=== PATIENT | female | born 1980 | race American Indian/Alaskan Native ===

== ENCOUNTER 2017-09-20 20:55 | Emergency (ER) | payer OTHER ==
[2017-09-20] MEDS ORDERED: ASPIRIN PO ONE (21:35)
[2017-09-20 21:52] LABS: Basophils % (Auto) 0.5 % (0.0-1.8); Eosinophils # (Auto) 0.1 K/mm3 (0.0-0.4); Eosinophils % (Auto) 2.1 % (0.0-4.3); Hematocrit 27.8 % (30.3-42.9); Hemoglobin 8.9 gm/dl (10.1-14.3); Lymphocytes # (Auto) 1.6 K/mm3 (1.2-5.4); Lymphocytes % (Auto) 24.2 % (13.4-35.0); Mean Corpuscular HGB Conc 32 % (30-34); Monocytes # (Auto) 0.7 K/mm3 (0.0-0.8); Platelet Count 317 K/mm3 (140-440); Red Blood Count 4.21 M/mm3 (3.65-5.03); Red Cell Distribution Width 18.7 % (13.2-15.2)
[2017-09-20 21:57] LABS: Mean Corpuscular Hemoglobin 21 pg (28-32); Mean Corpuscular Volume 66 fl (79-97)
[2017-09-20 22:03] LABS: INR 0.95 (0.87-1.13); Partial Thromboplastin Time 28.2 Sec. (24.2-36.6)
[2017-09-20 22:12] LABS: BUN/Creatinine Ratio 9; Blood Urea Nitrogen 8 mg/dL (7-17); Calcium 8.5 mg/dL (8.4-10.2); Hemolysis Index 3
--- NOTE | 2017-09-20 23:02 | XRay Report ---
FINAL REPORT PROCEDURE: XR CHEST ROUTINE 2V TECHNIQUE: PA and lateral chest radiographs were obtained. CPT 49211 HISTORY: Shortness of breath w/Chest pain COMPARISON: No prior studies are available for comparison. FINDINGS: Heart: Upper normal size. Mediastinum/Vessels: Normal. Lungs/Pleural space: Normal. Bony thorax: No acute osseous abnormality. Other: IMPRESSION: Heart size upper normal. No other abnormality is seen..
[2017-09-20 23:27] LABS: Bilirubin,Urine NEG (Negative); Blood,Urine NEG (Negative); Color,Urine Straw (Yellow); Urobilinogen,Urine < 2.0 mg/dL (<2.0); WBC,Urine < 1.0 /HPF (0.0-6.0)
--- NOTE | 2017-09-21 01:49 | Emergency Department Report ---
ED Chest Pain HPI - General Chief Complaint: Chest Pain Stated Complaint: CHEST PAIN Time Seen by Provider: 09/21/17 01:16 Source: patient Mode of arrival: Ambulatory Limitations: No Limitations - History of Present Illness Initial Comments: Patient states just moved here from [place] a year ago she's been lost to follow-up since then. She apparently does smoke has only a questionable history of coronary artery disease. She's been out of all of her medicines except her Prilosec since she moved to [place] a year ago. Today she has some intermittent chest tightness she thought it was maybe like her previous chest pain last for several minutes and goes away she's not sure if it's exertional. She is a poor historian. She does continue to smoke. [facility] was given medicine for her "chronic bronchitis. " She is here for evaluation of intermittent chest pain all day. Positive tobacco with possible greenish cough with chronic bronchitis. She denied any numbness or weakness denied any radiation denied any nausea vomiting or diaphoresis, no tearing pain , no calf pain, had cardiac bypass but gained all the wt back per pt Pain Location: substernal, left chest Severity scale (0 -10): 6 Quality: tightness Consistency: now resolved Improves With: nothing Worsens With: nothing re: denies: nausea, vomting, diaphoresis, dyspnea, sense of impending doom Other Symptoms: denies: fever, syncope, rash, acid taste in mouth, leg swelling , palpitations - Related Data Previous Rx's Medication Instructions Recorded Last Taken Type ALBUTEROL NEB's [Proventil 0.083% 2.5 mg IH TID PRN #1 neb 09/21/17 Unknown Rx NEBS] Doxycycline [Vibramycin CAP] 100 mg PO Q12HR #14 capsule 09/21/17 Unknown Rx Allergies Allergy/AdvReac Type Severity Reaction Status Date / Time No Known Allergies Allergy Unverified 09/20/17 21:23 Heart Score - HEART Score History: Slightly suspicious EKG: Non-specific Age: < 45 Risk factors: 1-2 risk factors Troponin: < normal limit HEART Score: 2 ED Review of Systems ROS: Stated complaint: CHEST PAIN Other details as noted in HPI Comment: All other systems reviewed and negative Constitutional: denies: diaphoresis, fever, malaise ENT: denies: dental pain, hearing loss Respiratory: denies: SOB with exertion, SOB at rest, stridor Cardiovascular: chest pain. denies: palpitations, dyspnea on exertion, orthopnea, edema, syncope, paroxysmal nocturnal dyspnea Endocrine: denies: excessive sweating, flushing Gastrointestinal: denies: abdominal pain, nausea, vomiting, diarrhea, constipation, hematemesis Musculoskeletal: denies: back pain, joint swelling, arthralgia Neurological: denies: headache, weakness, numbness, paresthesias, confusion, abnormal gait, vertigo ED Past Medical Hx - Past Medical History Previous Medical History?: Yes Hx Hypertension: Yes Hx Heart Attack/AMI: Yes Hx Diabetes: Yes Additional medical history: Lymphedema, Chronic Bronchitis uses a nebulizer machine - Surgical History Past Surgical History?: Yes Additional Surgical History: , Gastric Bypass - Social History Smoking Status: Current Every Day Smoker - Medications Home Medications: Home Medications Medication Instructions Recorded Confirmed Last Taken Type ALBUTEROL NEB's [Proventil 0.083% 2.5 mg IH TID PRN #1 neb 09/21/17 Unknown Rx NEBS] Doxycycline [Vibramycin CAP] 100 mg PO Q12HR #14 capsule 09/21/17 Unknown Rx ED Physical Exam - General Limitations: No Limitations General appearance: alert, in no apparent distress, anxious, obese - Head Head exam: Present: atraumatic, normocephalic - Eye Eye exam: Present: PERRL, EOMI - ENT ENT exam: Present: normal exam, normal orophraynx - Neck Neck exam: Present: normal inspection. Absent: tenderness, meningismus - Respiratory Respiratory exam: Present: normal lung sounds bilaterally. Absent: respiratory distress, wheezes, rales, rhonchi, stridor - Cardiovascular Cardiovascular Exam: Present: regular rate, normal rhythm. Absent: bradycardia , tachycardia, irregular rhythm - GI/Abdominal GI/Abdominal exam: Present: soft. Absent: distended, tenderness, guarding, rebound, rigid, mass, bruit, pulsatile mass - Extremities Exam Extremities exam: Present: normal inspection, other (no Homans sign). Absent: normal capillary refill, pedal edema, joint swelling, calf tenderness - Back Exam Back exam: Present: normal inspection, CVA tenderness (L). Absent: muscle spasm , paraspinal tenderness, vertebral tenderness - Neurological Exam Neurological exam: Present: alert, oriented X3, CN II-XII intact. Absent: motor sensory deficit ED Course Vital Signs 09/20/17 09/21/17 09/21/17 21:29 01:00 01:10 Temperature 99.6 F Pulse Rate 111 H 91 H Respiratory 20 19 20 Rate Blood Pressure 147/72 O2 Sat by Pulse 99 100 100 Oximetry 09/21/17 09/21/17 09/21/17 01:15 01:30 01:45 Temperature Pulse Rate 106 H 85 85 Respiratory 16 14 14 Rate Blood Pressure 155/87 162/97 162/97 O2 Sat by Pulse 100 98 Oximetry ED Medical Decision Making - Lab Data Result diagrams: 09/20/17 21:39 09/20/17 21:39 - EKG Data EKG shows normal: sinus rhythm - EKG Data Interpretation: no acute changes, other (QS V1 and V2 no acute ischemic change no old EKG) - Radiology Data Radiology results: report reviewed - Medical Decision Making Patient does continue to smoke. She has been lost to follow-up. Symptoms are atypical. Rest and with exertion she doesn't know if it's like her heart pain. She's not sure she's having increasing bouts of it. She just knows that over the past 24 hours she has had intermittent chest discomfort with rest and with exertion. She is a poor historian. She's not sure if his bronchitis or something else. EKG was nondiagnostic qS V1 and V2, troponin is negative timesx2 History is unremarkable. She is perc nega. Chest x-ray is negative pulses = bilaterally. There is no evidence of dissection or PE DVT at this time no evidence of pneumonia. She does seem to multifactorial symptomatology including related to her chronic underlying lung disease with chronic bronchitis with chest pain. 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 ED Disposition Clinical Impression: Chest pain, Chronic bronchitis Disposition: DC-01 TO HOME OR SELFCARE Is pt being admited?: No Condition: Stable Instructions: Chest Pain (ED), Chronic Bronchitis (ED) Additional Instructions: See the doctor listed , return Immediately If New Alarming Symptoms or Call 911 Prescriptions: ALBUTEROL NEB's [Proventil 0.083% NEBS] 2.5 mg IH TID PRN #1 neb PRN Reason: Wheezing Doxycycline [Vibramycin CAP] 100 mg PO Q12HR #14 capsule Referrals: MARIANA PARKER MD [Primary Care Provider] - 3-5 Days Forms: Work/School Release Form(ED) Time of Disposition: 03:38
[2017-09-21 03:37] VITALS: BP 179/102
== END 2017-09-21 03:48 | disposition home or self-care (01) ==
LOC: ED 20:55
DX: J42 Unspecified chronic bronchitis (principal); R07.89 Other chest pain; I11.0 Hypertensive heart disease with heart failure; E11.9 Type 2 diabetes mellitus without complications; F17.200 Nicotine dependence, unspecified, uncomplicated; Z98.84 Bariatric surgery status
CPT/HCPCS: 36415; 71046; 80048; 81001; 84484; 84703; 85025; 85610; 85730; 93005; 93010; 99284

== ENCOUNTER 2018-02-18 13:13 | Outpatient (CLI) | payer OTHER ==
[2018-02-18] MEDS ORDERED: XYLOCAINE TOPICAL 4% TP ONE ×2 (13:17→13:18)
== END 2018-02-18 13:14 | disposition home or self-care (01) ==
LOC: WOUND 13:13
PROVIDERS: ATTEND Surgery
DX: E11.622 Type 2 diabetes mellitus with other skin ulcer (principal); L97.811 Non-pressure chronic ulcer of other part of right lower leg limited to breakdown of skin; I89.0 Lymphedema, not elsewhere classified; I10 Essential (primary) hypertension; F17.200 Nicotine dependence, unspecified, uncomplicated
CPT/HCPCS: 99205; G0463

== ENCOUNTER 2018-02-25 13:03 | Outpatient (CLI) | payer OTHER ==
[2018-02-25] MEDS ORDERED: XYLOCAINE TOPICAL 4% TP ONE ×2 (13:37→13:38)
== END 2018-02-25 13:04 | disposition home or self-care (01) ==
LOC: WOUND 13:03
PROVIDERS: ATTEND Surgery
DX: E11.622 Type 2 diabetes mellitus with other skin ulcer (principal); L97.812 Non-pressure chronic ulcer of other part of right lower leg with fat layer exposed; I89.0 Lymphedema, not elsewhere classified; I10 Essential (primary) hypertension; F17.200 Nicotine dependence, unspecified, uncomplicated
CPT/HCPCS: 29581

== ENCOUNTER 2018-03-01 12:47 | Outpatient (CLI) | payer OTHER | END 2018-03-01 12:48 | disposition home or self-care (01) | LOC: WOUND 12:47 | PROVIDERS: ATTEND Surgery | DX: E11.622 Type 2 diabetes mellitus with other skin ulcer (principal); L97.812 Non-pressure chronic ulcer of other part of right lower leg with fat layer exposed; I89.0 Lymphedema, not elsewhere classified; I10 Essential (primary) hypertension; F17.200 Nicotine dependence, unspecified, uncomplicated | CPT/HCPCS: 99213; G0463 ==

== ENCOUNTER 2018-07-25 12:37 | Emergency (ER) | payer OTHER ==
[2018-07-25] MEDS ORDERED: BABY ASPIRIN PO ONE (12:59)
--- NOTE | 2018-07-25 12:59 | Emergency Department Report ---
Blank Doc - Documentation Documentation: This is a 38-year-old female that presents with mid chest pain with SOB. Desc ribes pain as pressure. Denies any radiation. PMH of SC, DM, HTN. This initial assessment diagnostic orders/clinical plan/treatment(s) is/are subject to change based on patient's health status, clinical progression and re- assessment by fellow clinical providers in the ED. Further treatment and workup at subsequent clinical providers discretion. Patient/guardians urged not to elope from ED s their condition may be serious if not clinically assessed and managed. Initial orders include: 1-Patient sent to MAIN ED for further evaluation and treatment 2- EKG 3- Labs 4- CXR
[2018-07-25] MEDS ORDERED: ASPIRIN ONE (13:03)
[2018-07-25 13:25] LABS: Basophils # (Auto) 0.1 K/mm3 (0.0-0.1); Basophils % (Auto) 1.1 % (0.0-1.8); Eosinophils # (Auto) 0.2 K/mm3 (0.0-0.4); Eosinophils % (Auto) 2.1 % (0.0-4.3); Hematocrit 39.6 % (30.3-42.9); Hemoglobin 13.6 gm/dl (10.1-14.3); Lymphocytes # (Auto) 1.7 K/mm3 (1.2-5.4); Lymphocytes % (Auto) 21.4 % (13.4-35.0); Mean Corpuscular HGB Conc 34 % (30-34); Mean Corpuscular Volume 83 fl (79-97); Monocytes # (Auto) 0.7 K/mm3 (0.0-0.8); Monocytes % (Auto) 8.9 % (0.0-7.3); Platelet Count 293 K/mm3 (140-440); Red Blood Count 4.79 M/mm3 (3.65-5.03); Red Cell Distribution Width 14.9 % (13.2-15.2)
[2018-07-25 13:35] LABS: INR 0.93 (0.87-1.13)
[2018-07-25] MEDS ORDERED: NITRO-BID 2% TP ONE (13:36)
--- NOTE | 2018-07-25 13:44 | Emergency Department Report ---
HPI - HPI HPI: Room 4 The patient is a 38-year-old female presenting with a chief complaint of chest pain. The patient states approximately 30 minutes prior to arrival she was at rest when she developed intermittent substernal chest pressure associated with shortness of breath. Patient denies nausea/vomiting or diaphoresis. Patient states her last stress test occurred approximately 2-3 years ago but she has never had a cardiac catheterization Location: Chest Duration: [See above] Quality: Pressure Severity: Moderate Modifying factors: [see above] Context: [see above] Mode of transportation: [not driving] <SHAKIRA LOCKWOOD - Last Filed: 07/25/18 15:06> <GIOVANNY GAMBLE - Last Filed: 07/25/18 16:56> - General Chief Complaint: Chest Pain Time Seen by Provider: 07/25/18 12:56 ED Past Medical Hx - Past Medical History Hx Hypertension: Yes Hx Heart Attack/AMI: Yes Hx Diabetes: Yes Additional medical history: Lymphedema, Chronic Bronchitis uses a nebulizer machine,PUD - Surgical History Additional Surgical History: , Gastric Bypass - Family History Family history: no significant - Social History Smoking Status: Current Every Day Smoker (1/2 pack per day) Substance Use Type: Alcohol (moderate), Marijuana <SHAKIRA LOCKWOOD - Last Filed: 07/25/18 15:06> <GIOVANNY GAMBLE - Last Filed: 07/25/18 16:56> - Medications Home Medications: Home Medications Medication Instructions Recorded Confirmed Last Taken Type Ergocalciferol [Vitamin D2] 1 cap PO QWEEK 07/25/18 07/25/18 Unknown History Ferrous Sulfate [Iron] 325 mg PO DAILY 07/25/18 07/25/18 Unknown History Loratadine 10 mg PO DAILY 07/25/18 07/25/18 Unknown History Omeprazole 40 mg PO DAILY 07/25/18 07/25/18 Unknown History amLODIPine [Norvasc] 10 mg PO DAILY 07/25/18 07/25/18 Unknown History ED Review of Systems ROS: Stated complaint: CHEST PAIN Other details as noted in HPI Constitutional: denies: diaphoresis Eyes: denies: eye pain ENT: denies: throat pain Respiratory: shortness of breath Cardiovascular: chest pain Endocrine: no symptoms reported Gastrointestinal: denies: nausea, vomiting Genitourinary: denies: dysuria Musculoskeletal: denies: back pain Neurological: denies: headache <SHAKIRA LOCKWOOD - Last Filed: 07/25/18 15:06> ROS: Stated complaint: CHEST PAIN Other details as noted in HPI <GIOVANNY GAMBLE - Last Filed: 07/25/18 16:56> Physical Exam - Physical Exam Vital Signs: Vital Signs 07/25/18 12:57 Temperature 97.8 F Pulse Rate 91 H Respiratory 22 Rate Blood Pressure 132/72 O2 Sat by Pulse 97 Oximetry Physical Exam: GENERAL: The patient is well-developed well-nourished female lying on stretcher not appearing to be in acute distress. [] HEENT: Normocephalic. Atraumatic. Extraocular motions are intact. Patient has moist mucous membranes. NECK: Supple. Trachea midline CHEST/LUNGS: Clear to auscultation. There is no respiratory distress noted. HEART/CARDIOVASCULAR: Regular. There is no tachycardia. There is no gallop rub or murmur. ABDOMEN: Abdomen is soft, nontender. Patient has normal bowel sounds. There is no abdominal distention. SKIN: There is no rash. There is no edema. There is no diaphoresis. NEURO: The patient is awake, alert, and oriented. The patient is cooperative. The patient has normal speech MUSCULOSKELETAL: There is no evidence of acute injury. <SHAKIRA LOCKWOOD K - Last Filed: 07/25/18 15:06> - Physical Exam Vital Signs: Vital Signs 07/25/18 07/25/18 07/25/18 12:57 14:31 14:45 Temperature 97.8 F Pulse Rate 91 H 103 H 104 H Respiratory 22 17 13 Rate Blood Pressure 132/72 144/72 O2 Sat by Pulse 97 99 97 Oximetry 07/25/18 07/25/18 15:01 15:15 Temperature Pulse Rate 110 H 98 H Respiratory 20 18 Rate Blood Pressure 183/96 144/72 O2 Sat by Pulse 91 98 Oximetry <GIOVANNY GAMBLE - Last Filed: 07/25/18 16:56> ED Course Vital Signs 07/25/18 12:57 Temperature 97.8 F Pulse Rate 91 H Respiratory 22 Rate Blood Pressure 132/72 O2 Sat by Pulse 97 Oximetry <SHAKIRA LOCKWOOD - Last Filed: 07/25/18 15:06> Vital Signs 07/25/18 07/25/18 07/25/18 12:57 14:31 14:45 Temperature 97.8 F Pulse Rate 91 H 103 H 104 H Respiratory 22 17 13 Rate Blood Pressure 132/72 144/72 O2 Sat by Pulse 97 99 97 Oximetry 07/25/18 07/25/18 15:01 15:15 Temperature Pulse Rate 110 H 98 H Respiratory 20 18 Rate Blood Pressure 183/96 144/72 O2 Sat by Pulse 91 98 Oximetry <GAMBLEGIOVANNY - Last Filed: 07/25/18 16:56> ED Medical Decision Making - Lab Data Result diagrams: 07/25/18 13:15 07/25/18 13:15 - EKG Data -: EKG Interpreted by Me EKG shows normal: sinus rhythm Rate: normal - EKG Data When compared to previous EKG there are: previous EKG unavailable Interpretation: other (no ischemic changes seen) - Radiology Data Radiology results: report reviewed (chest x-ray), image reviewed (chest x-ray) interpreted by me: Chest x-ray-no focal infiltrates, no pneumothorax [facility] [address] [place] [address] XRay Report Signed Patient: NEIDA CHENG MR#: [id number] : 1980 Acct:[id number] Age/Sex: 38 / F ADM Date: 07/25/18 Loc: ED Attending Dr: Ordering Physician: SHAKIRA LOCKWOOD MD Date of Service: 07/25/18 Procedure(s): XR chest 1V ap Accession Number(s): [id number] cc: SHAKIRA LOCKWOOD MD Fluoro Time In Minutes: AP CHEST: HISTORY: Chest pain AP view of the chest demonstrates a normal mediastinal and cardiac contour with clear lungs and normal bony and soft tissue structures. IMPRESSION: Unremarkable AP chest. Transcribed By: TTR Dictated By: MONALISA SANCHEZ JR, MD Electronically Authenticated By: MONALISA SANCHEZ JR, MD Signed Date/Time: 07/25/18 1354 DD/ 1353 TD/TT: 07/25/18 1354 - Differential Diagnosis ACS, pericarditis, GERD <SHAKIRA LOCKWOOD - Last Filed: 07/25/18 15:06> - Lab Data Result diagrams: 07/25/18 13:15 07/25/18 13:15 - Medical Decision Making Second troponin and negative. Patient of the sign out AGAINST MEDICAL ADVICE since Dr. Lockwood wanted to admit the patient to the hospital. <GIOVANNY GAMBLE - Last Filed: 07/25/18 16:56> Critical care attestation.: If time is entered above; I have spent that time in minutes in the direct care of this critically ill patient, excluding procedure time. <SHAKIRA LOCKWOOD - Last Filed: 07/25/18 15:06> Critical care attestation.: If time is entered above; I have spent that time in minutes in the direct care of this critically ill patient, excluding procedure time. <GIOVANNY GAMBLE - Last Filed: 07/25/18 16:56> ED Disposition <SHAKIRA LOCKWOOD - Last Filed: 07/25/18 15:06> Is pt being admited?: No Time of Disposition: 16:55 <GIOVANNY GAMBLE - Last Filed: 07/25/18 16:56> Clinical Impression: Chest pain Disposition: DC-07 LEFT AGAINST MED ADVICE Condition: Stable Instructions: Chest Pain (ED) Additional Instructions: Take the medication as prescribed. Follow up with your doctor or the clinic/doctor provided. Return if symptoms worsen as indicated by your discharge instructions. You are signing out AGAINST MEDICAL ADVICE today since admission was recommended. Referrals: [facility] MD JENNIFER [Primary Care Provider] - 3-5 Days MAIKOL MOULTON MD [Staff Physician] - 3-5 Days Forms: AMA Form
[2018-07-25 13:55] LABS: Alanine Aminotransferase 55 units/L (7-56); Albumin 3.8 g/dL (3.9-5); BUN/Creatinine Ratio 18; Blood Urea Nitrogen 14 mg/dL (7-17); Calcium 9.2 mg/dL (8.4-10.2); Hemolysis Index 13
--- NOTE | 2018-07-25 13:57 | XRay Report ---
AP CHEST: HISTORY: Chest pain AP view of the chest demonstrates a normal mediastinal and cardiac contour with clear lungs and normal bony and soft tissue structures. IMPRESSION: Unremarkable AP chest.
[2018-07-25] MEDS ORDERED: ASPIRIN PO ONE (14:00)
[2018-07-25 14:10] LABS: Creatine Kinase MB 2.7 ng/mL (0.0-4.0)
[2018-07-25 16:37] LABS: Bilirubin,Urine NEG (Negative); Blood,Urine LG (Negative); Color,Urine Yellow (Yellow); Mucus,Urine FEW /HPF; Urobilinogen,Urine < 2.0 mg/dL (<2.0); WBC,Urine < 1.0 /HPF (0.0-6.0)
[2018-07-25 16:57] VITALS: BP 151/93
== END 2018-07-25 17:18 | disposition left against medical advice (07) ==
LOC: ED 12:37
DX: R07.89 Other chest pain (principal); R06.02 Shortness of breath; I10 Essential (primary) hypertension; I25.2 Old myocardial infarction; E11.9 Type 2 diabetes mellitus without complications; F17.200 Nicotine dependence, unspecified, uncomplicated; F12.10 Cannabis abuse, uncomplicated
CPT/HCPCS: 36415; 71045; 80053; 81001; 82550; 82553; 84484; 84703; 85025; 85610; 85730; 93005; 93010

== ENCOUNTER 2018-09-06 08:45 | Observation (INO) | payer OTHER ==
[2018-09-06] MEDS ORDERED: ASPIRIN PO ONE (08:55)
[2018-09-06 09:37] LABS: Basophils % (Auto) 0.6 % (0.0-1.8); Eosinophils # (Auto) 0.2 K/mm3 (0.0-0.4); Eosinophils % (Auto) 2.3 % (0.0-4.3); Hematocrit 37.7 % (30.3-42.9); Lymphocytes # (Auto) 1.2 K/mm3 (1.2-5.4); Lymphocytes % (Auto) 17.9 % (13.4-35.0); Mean Corpuscular HGB Conc 34 % (30-34); Mean Corpuscular Volume 84 fl (79-97); Monocytes # (Auto) 0.6 K/mm3 (0.0-0.8); Monocytes % (Auto) 9.3 % (0.0-7.3); Platelet Count 273 K/mm3 (140-440); Red Blood Count 4.51 M/mm3 (3.65-5.03)
[2018-09-06] MEDS ORDERED: CATAPRES PO ONE (09:49)
[2018-09-06] MEDS ORDERED: NITROSTAT SL PRN (09:50)
[2018-09-06] MEDS ORDERED: CATAPRES ONE (09:54)
--- NOTE | 2018-09-06 09:54 | Emergency Department Report ---
ED Chest Pain HPI - General Chief Complaint: Chest Pain Stated Complaint: CHEST AND BACK PAIN Time Seen by Provider: 09/06/18 09:39 Source: patient Mode of arrival: Ambulatory Limitations: No Limitations - History of Present Illness Initial Comments: Patient is a 38-year-old female with past medical history of hypertension diabetes who states that she believes she had a MD in 2011 as presented with chest discomfort. Patient states in 2011 she was told that she had a mild heart attack at the [facility]. The patient states she never had a cardiac cath or stents placed. Patient states "I had a stress test as stated that my heart was functioning at 80%". Patient states that she oftentimes gets chest pain. Patient states last chest pain episodes were in July she was seen here in the emergency department and was to be admitted however she signed out AGAINST MEDICAL ADVICE. Patient states the chest pressure started last night and some mild shortness of breath and then resolved before she went to bed. 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 Patient states that the pain is 6 out of 10 currently. She hasn't got short of breath but no diaphoresis. Patient denies any nausea vomiting, cold or congestion. Severity scale (0 -10): 6 - Related Data Home Medications Medication Instructions Recorded Confirmed Last Taken Ergocalciferol [Vitamin D2] 1 cap PO QWEEK 07/25/18 09/06/18 Unknown Ferrous Sulfate [Iron] 325 mg PO DAILY 07/25/18 09/06/18 Unknown Loratadine 10 mg PO DAILY 07/25/18 09/06/18 Unknown Omeprazole 40 mg PO DAILY 07/25/18 09/06/18 Unknown amLODIPine [Norvasc] 10 mg PO DAILY 07/25/18 09/06/18 Unknown Allergies Allergy/AdvReac Type Severity Reaction Status Date / Time No Known Allergies Allergy Verified 09/06/18 08:51 Heart Score - HEART Score History: Moderately suspicious EKG: Non-specific Age: < 45 Risk factors: > 3 risk factors or hx of atherosclerotic disease Troponin: < normal limit HEART Score: 4 ED Review of Systems ROS: Stated complaint: CHEST AND BACK PAIN Other details as noted in HPI Comment: All other systems reviewed and negative ED Past Medical Hx - Past Medical History Hx Hypertension: Yes Hx Heart Attack/AMI: Yes Hx Diabetes: Yes Additional medical history: Lymphedema, Chronic Bronchitis uses a nebulizer machine,PUD - Surgical History Additional Surgical History: , Gastric Bypass - Social History Smoking Status: Never Smoker Substance Use Type: None - Medications Home Medications: Home Medications Medication Instructions Recorded Confirmed Last Taken Type Ergocalciferol [Vitamin D2] 1 cap PO QWEEK 07/25/18 09/06/18 Unknown History Ferrous Sulfate [Iron] 325 mg PO DAILY 07/25/18 09/06/18 Unknown History Loratadine 10 mg PO DAILY 07/25/18 09/06/18 Unknown History Omeprazole 40 mg PO DAILY 07/25/18 09/06/18 Unknown History amLODIPine [Norvasc] 10 mg PO DAILY 07/25/18 09/06/18 Unknown History ED Physical Exam - General Limitations: No Limitations General appearance: alert, in no apparent distress - Head Head exam: Present: atraumatic, normocephalic - Eye Eye exam: Present: normal appearance, PERRL, EOMI - ENT ENT exam: Present: mucous membranes moist - Neck Neck exam: Present: normal inspection - Respiratory Respiratory exam: Present: normal lung sounds bilaterally. Absent: respiratory distress, wheezes, rales, rhonchi, chest wall tenderness - Cardiovascular Cardiovascular Exam: Present: regular rate, normal rhythm, normal heart sounds. Absent: systolic murmur, diastolic murmur, rubs, gallop - GI/Abdominal GI/Abdominal exam: Present: soft, normal bowel sounds. Absent: distended, tenderness, guarding, rebound, rigid - Extremities Exam Extremities exam: Present: normal inspection - Back Exam Back exam: Present: normal inspection - Neurological Exam Neurological exam: Present: alert, oriented X3 - Psychiatric Psychiatric exam: Present: normal affect, normal mood - Skin Skin exam: Present: warm, dry, intact, normal color. Absent: rash ED Course Vital Signs 09/06/18 09/06/18 09/06/18 08:51 09:59 10:00 Temperature 98.2 F Pulse Rate 100 H 89 89 Respiratory 18 Rate Blood Pressure 180/98 130/90 130/90 O2 Sat by Pulse 99 Oximetry SAMANTA score - Samanta Score Age > 65: (0) No Aspirin use within the Past 7 Days: (0) No 3 or more CAD Risk Factors: (1) Yes 2 or more Angina events in past 24 hrs: (1) Yes Known CAD with more than 50% Stenosis: (0) No Elevated Cardiac Markers: (0) No ST Deviation Greater than 0.5mm: (0) No SAMANTA Score: 2 ED Medical Decision Making - Lab Data Result diagrams: 09/06/18 09:12 09/06/18 09:12 Lab Results 09/06/18 09/06/18 09/06/18 Range/Units 09:12 09:12 11:47 WBC 6.8 (4.5-11.0) K/mm3 RBC 4.51 (3.65-5.03) M/mm3 Hgb 13.0 (10.1-14.3) gm/dl Hct 37.7 (30.3-42.9) % MCV 84 (79-97) fl MCH 29 (28-32) pg MCHC 34 (30-34) % RDW 15.0 (13.2-15.2) % Plt Count 273 (140-440) K/mm3 Lymph % (Auto) 17.9 (13.4-35.0) % Addison % (Auto) 9.3 H (0.0-7.3) % Eos % (Auto) 2.3 (0.0-4.3) % Baso % (Auto) 0.6 (0.0-1.8) % Lymph # 1.2 (1.2-5.4) K/mm3 Addison # 0.6 (0.0-0.8) K/mm3 Eos # 0.2 (0.0-0.4) K/mm3 Baso # 0.0 (0.0-0.1) K/mm3 Seg Neutrophils % 69.9 (40.0-70.0) % Seg Neutrophils # 4.7 (1.8-7.7) K/mm3 D-Dimer (0-234) ng/mlDDU Sodium 136 L (137-145) mmol/L Potassium 3.9 (3.6-5.0) mmol/L Chloride 99.9 (98-107) mmol/L Carbon Dioxide 23 (22-30) mmol/L Anion Gap 17 mmol/L BUN 9 (7-17) mg/dL Creatinine 0.9 (0.7-1.2) mg/dL Estimated GFR > 60 ml/min BUN/Creatinine Ratio 10 % Glucose 168 H (65-100) mg/dL Calcium 8.9 (8.4-10.2) mg/dL Troponin T < 0.010 < 0.010 (0.00-0.029) ng/mL NT-Pro-B Natriuret Pep (0-450) pg/mL Triglycerides (2-149) mg/dL Cholesterol (50-199) mg/dL LDL Cholesterol Direct (50-130) mg/dL 09/06/18 09/06/18 Range/Units 11:47 13:10 WBC (4.5-11.0) K/mm3 RBC (3.65-5.03) M/mm3 Hgb (10.1-14.3) gm/dl Hct (30.3-42.9) % MCV (79-97) fl MCH (28-32) pg MCHC (30-34) % RDW (13.2-15.2) % Plt Count (140-440) K/mm3 Lymph % (Auto) (13.4-35.0) % Addison % (Auto) (0.0-7.3) % Eos % (Auto) (0.0-4.3) % Baso % (Auto) (0.0-1.8) % Lymph # (1.2-5.4) K/mm3 Addison # (0.0-0.8) K/mm3 Eos # (0.0-0.4) K/mm3 Baso # (0.0-0.1) K/mm3 Seg Neutrophils % (40.0-70.0) % Seg Neutrophils # (1.8-7.7) K/mm3 D-Dimer 462.84 H (0-234) ng/mlDDU Sodium (137-145) mmol/L Potassium (3.6-5.0) mmol/L Chloride (98-107) mmol/L Carbon Dioxide (22-30) mmol/L Anion Gap mmol/L BUN (7-17) mg/dL Creatinine (0.7-1.2) mg/dL Estimated GFR ml/min BUN/Creatinine Ratio % Glucose (65-100) mg/dL Calcium (8.4-10.2) mg/dL Troponin T (0.00-0.029) ng/mL NT-Pro-B Natriuret Pep 32.99 (0-450) pg/mL Triglycerides 148 (2-149) mg/dL Cholesterol 135 (50-199) mg/dL LDL Cholesterol Direct 75 (50-130) mg/dL - EKG Data -: EKG Interpreted by Me EKG shows normal: sinus rhythm, axis, intervals, QRS complexes Rate: tachycardia (101 rate) - EKG Data 09/06/18 09:55 Patient has Q waves in V1 and V2. These are unchanged since 07/25/2018. There is no evidence of an acute MD. - Radiology Data Radiology results: image reviewed (CXR WNL) - Medical Decision Making Patient has a history of hypertension diabetes and has allegedly had some cardiac issues in the past. Patient left AMA on her last visit and does have a cardiology appointment scheduled soon but this will not be for another week and a half. Patient still actively having some pain. Patient does have 2 negative troponins however until the patient has a stress test or cardiac catheter unable to determine whether the patient truly has unstable angina. Patient to be admitted to the hospitalist service with cardiology consult Critical Care Time: Yes (30) Critical care attestation.: If time is entered above; I have spent that time in minutes in the direct care of this critically ill patient, excluding procedure time. ED Disposition Clinical Impression: Chest pain Qualifiers: Chest pain type: unspecified Qualified Code(s): R07.9 - Chest pain, unspecified Disposition: -09 OP ADMIT IP TO THIS HOSP Is pt being admited?: Yes Does the pt Need Aspirin: No Condition: Stable Instructions: Chest Pain (ED) Time of Disposition: 13:49
--- NOTE | 2018-09-06 09:55 | XRay Report ---
ROUTINE CHEST, TWO VIEWS: HISTORY: chest pain. The trachea, heart, mediastinal contour, lung coffman and bony thorax are unremarkable. IMPRESSION: Unremarkable chest x-ray.
[2018-09-06 10:07] LABS: BUN/Creatinine Ratio 10; Blood Urea Nitrogen 9 mg/dL (7-17); Calcium 8.9 mg/dL (8.4-10.2); Hemolysis Index 6
[2018-09-06] MEDS ORDERED: PROVENTIL IH PRN (12:53)
[2018-09-06] MEDS ORDERED: BABY ASPIRIN PO STA (12:53)
[2018-09-06] MEDS ORDERED: SODIUM CHLORIDE FLUSH SYRINGE 10 ML IV PRN ×2 (12:53)
[2018-09-06] MEDS ORDERED: TYLENOL PO PRN (12:53)
[2018-09-06] MEDS ORDERED: ZOFRAN IV PRN (12:53)
--- NOTE | 2018-09-06 12:53 | History and Physical Report ---
History of Present Illness Chief complaint: My chest hurts, this feels like my last heart attack History of present illness: 38 YO Female with MO, Obesity, HTN, DM, IA, Lymphedema, Obesity Hypoventilation Syndrome presents to ED for evaluation. Pt states that she has experienced pain in her chest over the past 1 day with worsening symptoms over the past 8 hours. Pt states that pain is 6/10, substernal, radiates to back, worsened with exertion, relieved somewhat with rest, associated with shortness of breath. Pt acknowledges decreased exercise tolerance. Pt transported to [facility] via private vehicle. Pt seen and evaluated in ED and found to have Angina, and symptoms consistent with Diastolic CHF. Pt admitted to telemetry. Cardiology consulted in ED. Pt medication reconciled at time of admission. Past History Past Medical History: acute IA, diabetes, hypertension Past Surgical History: , Other (Gastric Bypass) Social history: single. denies: smoking, alcohol abuse, prescription drug abuse Family history: hypertension Medications and Allergies Allergies Allergy/AdvReac Type Severity Reaction Status Date / Time No Known Allergies Allergy Verified 09/06/18 08:51 Home Medications Medication Instructions Recorded Confirmed Last Taken Type Ergocalciferol [Vitamin D2] 1 cap PO QWEEK 07/25/18 09/06/18 Unknown History Ferrous Sulfate [Iron] 325 mg PO DAILY 07/25/18 09/06/18 Unknown History Loratadine 10 mg PO DAILY 07/25/18 09/06/18 Unknown History Omeprazole 40 mg PO DAILY 07/25/18 09/06/18 Unknown History amLODIPine [Norvasc] 10 mg PO DAILY 07/25/18 09/06/18 Unknown History Active Meds: Active Medications Nitroglycerin (Nitrostat) 0.4 mg SL .Q5MIN PRN PRN Reason: Chest Pain Last Admin: 09/06/18 10:00 Dose: 0.4 mg Documented by: Review of Systems Constitutional: no weight loss, no weight gain, no fever, no chills Ears, nose, mouth and throat: no ear pain, no ear discharge, no tinnitis, no decreased hearing, no nose pain, no nasal congestion Breasts: no change in shape, no swelling, no mass Cardiovascular: chest pain, shortness of breath, dyspnea on exertion, decreased exercise tolerance, no rapid/irregular heart beat, no syncope, no lightheadedness Respiratory: no cough, no cough with sputum, no excessive sputum, no hemoptysis Gastrointestinal: no nausea, no vomiting, no diarrhea, no constipation, no change in bowel habits Genitourinary Female: no pelvic pain, no flank pain, no menorrhagia, no dysuria, no urinary frequency Rectal: no pain, no incontinence, no bleeding Musculoskeletal: no neck stiffness, no neck pain, no shooting arm pain, no arm numbness/tingling, no low back pain Integumentary: no rash, no pruritis, no redness, no sores, no wounds Neurological: no transient paralysis, no paralysis, no weakness, no parathesias, no numbness, no tingling, no seizures Psychiatric: no anxiety, no memory loss, no change in sleep habits, no sleep disturbances, no hypersomnia, no change in appetite, no change in libido, no suicidal ideation, no disorientation Endocrine: no cold intolerance, no heat intolerance, no polyphagia, no excessive thirst, no polydipsia, no polyuria, no nocturia Hematologic/Lymphatic: no easy bruising, no easy bleeding Allergic/Immunologic: no urticaria, no allergic rhinitis, no wheezing Exam - Constitutional Vitals: Temp Pulse Resp BP Pulse Ox 98.2 F 89 18 130/90 99 09/06/18 08:51 09/06/18 10:00 09/06/18 08:51 09/06/18 10:00 09/06/18 08:51 General appearance: Present: mild distress, cachectic - EENT Eyes: Present: PERRL ENT: hearing intact, clear oral mucosa - Neck Neck: Present: supple, normal ROM - Respiratory Respiratory effort: normal Respiratory: bilateral: CTA - Cardiovascular Heart Sounds: Present: S1 & S2. Absent: rub, click - Extremities Extremities: pulses symmetrical, No edema Peripheral Pulses: within normal limits - Abdominal General gastrointestinal: Present: soft, non-tender, non-distended, normal bowel sounds Female genitourinary: Present: normal - Integumentary Integumentary: Present: clear, warm, dry - Musculoskeletal Musculoskeletal: gait normal, strength equal bilaterally - Psychiatric Psychiatric: appropriate mood/affect, intact judgment & insight - Neurologic Neurologic: CNII-XII intact, moves all extremities Results - Labs CBC & Chem 7: 09/06/18 09:12 09/06/18 09:12 Labs: Abnormal lab results 09/06/18 09/06/18 Range/Units 09:12 09:12 [place] % (Auto) 9.3 H (0.0-7.3) % Sodium 136 L (137-145) mmol/L Glucose 168 H (65-100) mg/dL Assessment and Plan - Patient Problems (1) Angina at rest Current Visit: Yes Status: Acute Plan to address problem: Admit to telemetry, serial cardiac enzymes, ekg, telemetry, stress test, cardiology consulted in ED, BNP, D dimer, Cardiology consulted in ED, morphine, supplemental oxygen, nitro, aspirin. (2) Diastolic CHF Current Visit: Yes Status: Acute Qualifiers: Heart failure chronicity: acute Qualified Code(s): I50.31 - Acute diastolic (congestive) heart failure Plan to address problem: Echo, BNP, D dimer, cardiology consulted in ED, strict I/O, daily weight, afterload reduction, chest x ray. (3) HTN (hypertension) Current Visit: Yes Status: Acute Qualifiers: Hypertension type: essential hypertension Qualified Code(s): I10 - Essential (primary) hypertension Plan to address problem: Monitor bp q shift. (4) Diabetes Current Visit: Yes Status: Acute Plan to address problem: ADA diet, insulin, accu check, (5) Obesity hypoventilation syndrome Current Visit: Yes Status: Acute Plan to address problem: Supplemental oxygen, nebulizer therapy, pulse oximetry, chest x ray, NIPPV as clinically indicated. (6) DVT prophylaxis Current Visit: Yes Status: Acute Plan to address problem: SCD to BLE while in bed, prophylactic lovenox
[2018-09-06] MEDS ORDERED: PROTONIX IV ONE (14:10)
[2018-09-06] MEDS ORDERED: PROTONIX PO ONE (14:10)
[2018-09-06 14:18] LABS: Chol/HDL Ratio 2.7 %
[2018-09-06] MEDS ORDERED: VITAMIN D2 PO SCH (15:00)
[2018-09-06] MEDS: PROTONIX PO SCH (16:09)
--- NOTE | 2018-09-06 16:54 | Cat Scan Report ---
PROCEDURE: CT angiogram chest with contrast. TECHNIQUE: Computerized tomographic angiography of the chest was performed after the IV injection of iodinated nonionic contrast including image processing. The image data was postprocessed using 2-di mensional multiplanar reformatted (MPR) and 3-dimensional (MIP and/or volume rendered) techniques. Au tomated exposure control, adjustment of mA and/or kV according to patient size, or iterative reconstr uction dose optimization techniques were utilized. CT DOSE LENGTH PRODUCT: 999.46 mGycm HISTORY: Chest pain. COMPARISONS: None. FINDINGS: Image quality is limited by the patient's obesity. The trachea and central bronchi appear normal. The lungs are clear and well expanded. There are no pleural effusions. The thoracic aorta has a normal c aliber. There is no evidence of aortic dissection. The pulmonary arteries enhance normally. There is no evidence of pulmonary embolism. There is no mediastinal adenopathy. The heart size is normal. The thoracic skeleton appears intact. IMPRESSION: No significant abnormality. This document is electronically signed by Tom Chang MD., September 06 2018 04:52:42 PM ET
[2018-09-06] MEDS ORDERED: PERCOCET 5/325 ONE (19:46)
[2018-09-06] MEDS ORDERED: PERCOCET 5/325 PO ONE (19:49)
[2018-09-06] MEDS ORDERED: LOVENOX SUB-Q SCH (22:00)
[2018-09-06] MEDS ORDERED: PEPCID PO SCH (22:00)
[2018-09-06] MEDS: SODIUM CHLORIDE FLUSH SYRINGE 10 ML IV SCH (22:57)
[2018-09-06] MEDS ORDERED: BENADRYL PO PRN (23:07)
[2018-09-07 06:47] LABS: BUN/Creatinine Ratio 13; Blood Urea Nitrogen 12 mg/dL (7-17); Calcium 8.4 mg/dL (8.4-10.2); Hemolysis Index 3
[2018-09-07] MEDS ORDERED: NORVASC PO SCH (10:00)
[2018-09-07] MEDS ORDERED: FEOSOL PO SCH (10:00)
[2018-09-07] MEDS ORDERED: LEXISCAN IV ONE ×2 (10:00→10:10)
[2018-09-07] MEDS ORDERED: CLARITIN PO SCH (10:00)
[2018-09-07] MEDS ORDERED: NON-FORMULARY (Omeprazole [Omeprazole] 40 MG) PO SCH (10:00)
--- NOTE | 2018-09-07 11:27 | Progress Note ---
Assessment and Plan Assessment and plan: 38 YO Female with MO, Obesity, HTN, DM, HI, Lymphedema, Obesity Hypoventilation Syndrome presents to ED for evaluation. Pt states that she has experienced pain in her chest over the past 1 day with worsening symptoms over the past 8 hours. Pt states that pain is 6/10, substernal, radiates to back, worsened with exertion, relieved somewhat with rest, associated with shortness of breath. Pt acknowledges decreased exercise tolerance. Pt transported to [facility] via private vehicle. Pt seen and evaluated in ED and found to have Angina, and symptoms consistent with Diastolic CHF. Pt admitted to telemetry. Cardiology consulted in ED. Pt medication reconciled at time of admission. (1) Angina at rest Current Visit: Yes Status: Acute Plan to address problem: Admit to telemetry, serial cardiac enzymes, ekg, telemetry, stress test, cardiology consulted in ED, BNP, D dimer, Cardiology consulted in ED, morphine, supplemental oxygen, nitro, aspirin. (2) Diastolic CHF Current Visit: Yes Status: Acute Qualifiers: Heart failure chronicity: acute Qualified Code(s): I50.31 - Acute diastolic (congestive) heart failure Plan to address problem: Echo, BNP, D dimer, cardiology consulted in ED, strict I/O, daily weight, afterload reduction, chest x ray. (3) HTN (hypertension) Current Visit: Yes Status: Acute Qualifiers: Hypertension type: essential hypertension Qualified Code(s): I10 - Essential (primary) hypertension Plan to address problem: Monitor bp q shift. (4) Diabetes Current Visit: Yes Status: Acute Plan to address problem: ADA diet, insulin, accu check, (5) Obesity hypoventilation syndrome Current Visit: Yes Status: Acute Plan to address problem: Supplemental oxygen, nebulizer therapy, pulse oximetry, chest x ray, NIPPV as clinically indicated. (6) DVT prophylaxis Current Visit: Yes Status: Acute Plan to address problem: SCD to BLE while in bed, prophylactic lovenox Hospitalist Physical - Constitutional Vitals: Temp Pulse Resp BP Pulse Ox 98.2 F 75 18 129/84 97 09/07/18 07:40 09/07/18 07:40 09/07/18 07:40 09/07/18 07:40 09/07/18 09:01 General appearance: Present: mild distress, cachectic Results - Labs CBC & Chem 7: 09/06/18 09:12 09/07/18 05:45 Labs: Laboratory Last Values WBC 6.8 K/mm3 (4.5-11.0) 09/06/18 09:12 RBC 4.51 M/mm3 (3.65-5.03) 09/06/18 09:12 Hgb 13.0 gm/dl (10.1-14.3) 09/06/18 09:12 Hct 37.7 % (30.3-42.9) 09/06/18 09:12 MCV 84 fl (79-97) 09/06/18 09:12 MCH 29 pg (28-32) 09/06/18 09:12 MCHC 34 % (30-34) 09/06/18 09:12 RDW 15.0 % (13.2-15.2) 09/06/18 09:12 Plt Count 273 K/mm3 (140-440) 09/06/18 09:12 Lymph % (Auto) 17.9 % (13.4-35.0) 09/06/18 09:12 [place] % (Auto) 9.3 % (0.0-7.3) H 09/06/18 09:12 Eos % (Auto) 2.3 % (0.0-4.3) 09/06/18 09:12 Baso % (Auto) 0.6 % (0.0-1.8) 09/06/18 09:12 Lymph # 1.2 K/mm3 (1.2-5.4) 09/06/18 09:12 [place] # 0.6 K/mm3 (0.0-0.8) 09/06/18 09:12 Eos # 0.2 K/mm3 (0.0-0.4) 09/06/18 09:12 Baso # 0.0 K/mm3 (0.0-0.1) 09/06/18 09:12 Seg Neutrophils % 69.9 % (40.0-70.0) 09/06/18 09:12 Seg Neutrophils # 4.7 K/mm3 (1.8-7.7) 09/06/18 09:12 D-Dimer 462.84 ng/mlDDU (0-234) H 09/06/18 13:10 Sodium 134 mmol/L (137-145) L 09/07/18 05:45 Potassium 4.0 mmol/L (3.6-5.0) 09/07/18 05:45 Chloride 99.0 mmol/L (98-107) 09/07/18 05:45 Carbon Dioxide 26 mmol/L (22-30) 09/07/18 05:45 Anion Gap 13 mmol/L 09/07/18 05:45 BUN 12 mg/dL (7-17) 09/07/18 05:45 Creatinine 0.9 mg/dL (0.7-1.2) 09/07/18 05:45 Estimated GFR > 60 ml/min 09/07/18 05:45 BUN/Creatinine Ratio 13 % 09/07/18 05:45 Glucose 135 mg/dL (65-100) H 09/07/18 05:45 POC Glucose 119 (70-105) H 09/07/18 07:43 Calcium 8.4 mg/dL (8.4-10.2) 09/07/18 05:45 Troponin T < 0.010 ng/mL (0.00-0.029) 09/06/18 21:55 NT-Pro-B Natriuret Pep 32.99 pg/mL (0-450) 09/06/18 11:47 Triglycerides 148 mg/dL (2-149) 09/06/18 11:47 Cholesterol 135 mg/dL (50-199) 09/06/18 11:47 LDL Cholesterol Direct 75 mg/dL (50-130) 09/06/18 11:47 HDL Cholesterol 50 mg/dL (40-59) 09/06/18 11:47 Cholesterol/HDL Ratio 2.70 % 09/06/18 11:47 HCG, Qual Negative (Negative) 09/06/18 16:11 Active Medications - Current Medications Current Medications: Generic Name Dose Route Start Last Admin Trade Name Freq PRN Reason Stop Dose Admin Acetaminophen 650 mg 09/06/18 12:53 Tylenol PO Q4H PRN Pain MILD(1-3)/Fever >100.5/CLYA Albuterol 2.5 mg 09/06/18 12:53 Proventil IH Q4HRT PRN Shortness Of Breath Amlodipine Besylate 10 mg 09/07/18 10:00 Norvasc PO DAILY TALAT Diphenhydramine HCl 25 mg 09/06/18 23:07 09/06/18 23:33 Benadryl PO 25 mg QHS PRN Administration Allergy Symptoms Enoxaparin Sodium 40 mg 09/06/18 22:00 09/06/18 22:57 Lovenox SUB-Q 40 mg QDAY@2200 TALAT Administration Ergocalciferol 50,000 unit 09/06/18 15:00 09/06/18 19:48 Vitamin D2 PO 50,000 unit Mo [facility] Administration Ferrous Sulfate 325 mg 09/07/18 10:00 Feosol PO DAILY TALAT Loratadine 10 mg 09/07/18 10:00 Claritin PO QDAY TALAT Nitroglycerin 0.4 mg 09/06/18 09:50 09/06/18 10:00 Nitrostat SL 0.4 mg .Q5MIN PRN Administration Chest Pain Ondansetron HCl 4 mg 09/06/18 12:53 Zofran IV Q8H PRN Nausea And Vomiting Pantoprazole Sodium 40 mg 09/06/18 13:00 09/06/18 16:09 Protonix PO 40 mg DAILY TALAT Administration Sodium Chloride 10 ml 09/06/18 22:00 09/06/18 22:57 Sodium Chloride Flush Syringe 10 Ml IV 10 ml BID TALAT Administration Sodium Chloride 10 ml 09/06/18 12:53 Sodium Chloride Flush Syringe 10 Ml IV PRN PRN LINE FLUSH
[2018-09-07 11:37] VITALS: BP 128/79
[2018-09-07] MEDS: SODIUM CHLORIDE FLUSH SYRINGE 10 ML IV SCH (12:12)
[2018-09-07] MEDS: PROTONIX PO SCH (12:12)
--- NOTE | 2018-09-07 14:04 | Consultation ---
History of Present Illness Consult date: 09/07/18 Consult reason: chest pain History of present illness: The patient is a 38-year-old woman with a history of severe obesity and hyper tension. She presented to the hospital with atypical, nonexertional chest pain. ECG was sinus rhythm, benign ECG, cardiac isoenzymes were normal. Today, she underwent an exercise thallium stress test Jazmin which except for 6 minutes of Álvaro protocol, there was no chest pain, no ST changes and thallium images were normal. An echocardiogram also done on this presentation demonstrates normal left ventricular systolic function. 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 Otherwise no significant cardiac history. Past History Past Medical History: diabetes, hypertension, other (severe obesity) Past Surgical History: , Other (Gastric Bypass) Social history: single. denies: smoking, alcohol abuse, prescription drug abuse Family history: hypertension Medications and Allergies Allergies Allergy/AdvReac Type Severity Reaction Status Date / Time No Known Allergies Allergy Verified 09/06/18 08:51 Home Medications Medication Instructions Recorded Confirmed Last Taken Type Ergocalciferol [Vitamin D2] 1 cap PO QWEEK 07/25/18 09/06/18 Unknown History Ferrous Sulfate [Iron] 325 mg PO DAILY 07/25/18 09/06/18 Unknown History Loratadine 10 mg PO DAILY 07/25/18 09/06/18 Unknown History Omeprazole 40 mg PO DAILY 07/25/18 09/06/18 Unknown History amLODIPine [Norvasc] 10 mg PO DAILY 07/25/18 09/06/18 Unknown History Active Meds: Active Medications Acetaminophen (Tylenol) 650 mg PO Q4H PRN PRN Reason: Pain MILD(1-3)/Fever >100.5/CLAY Albuterol (Proventil) 2.5 mg IH Q4HRT PRN PRN Reason: Shortness Of Breath Amlodipine Besylate (Norvasc) 10 mg PO DAILY TALAT Last Admin: 09/07/18 12:11 Dose: 10 mg Documented by: Diphenhydramine HCl (Benadryl) 25 mg PO QHS PRN PRN Reason: Allergy Symptoms Last Admin: 09/06/18 23:33 Dose: 25 mg Documented by: Enoxaparin Sodium (Lovenox) 40 mg SUB-Q QDAY@2200 [facility] Last Admin: 09/06/18 22:57 Dose: 40 mg Documented by: Ergocalciferol (Vitamin D2) 50,000 unit PO Mo [facility] Last Admin: 09/06/18 19:48 Dose: 50,000 unit Documented by: Ferrous Sulfate (Feosol) 325 mg PO DAILY [facility] Last Admin: 09/07/18 12:11 Dose: 325 mg Documented by: Loratadine (Claritin) 10 mg PO QDAY [facility] Last Admin: 09/07/18 12:12 Dose: 10 mg Documented by: Nitroglycerin (Nitrostat) 0.4 mg SL .Q5MIN PRN PRN Reason: Chest Pain Last Admin: 09/06/18 10:00 Dose: 0.4 mg Documented by: Ondansetron HCl (Zofran) 4 mg IV Q8H PRN PRN Reason: Nausea And Vomiting Pantoprazole Sodium (Protonix) 40 mg PO DAILY [facility] Last Admin: 09/07/18 12:12 Dose: 40 mg Documented by: Sodium Chloride (Sodium Chloride Flush Syringe 10 Ml) 10 ml IV BID [facility] Last Admin: 09/07/18 12:12 Dose: 10 ml Documented by: Sodium Chloride (Sodium Chloride Flush Syringe 10 Ml) 10 ml IV PRN PRN PRN Reason: LINE FLUSH Review of Systems Cardiovascular: chest pain, shortness of breath, no orthopnea, no palpitations, no rapid/irregular heart beat, no edema, no syncope, no lightheadedness Physical Examination Vital Signs Temp Pulse Resp BP Pulse Ox 98.2 F 100 H 18 180/98 99 09/06/18 08:51 09/06/18 08:51 09/06/18 08:51 09/06/18 08:51 09/06/18 08:51 General appearance: no acute distress, obese HEENT: Positive: PERRL Neck: Positive: neck supple Cardiac: Positive: Reg Rate and Rhythm Lungs: Positive: Decreased Breath Sounds Neuro: Positive: Grossly Intact Abdomen: Positive: Soft Female genitourinary: deferred Skin: Positive: Clear Extremities: Absent: edema Results 09/06/18 09:12 09/07/18 05:45 Lipids 09/06/18 Range/Units 11:47 HDL Cholesterol 50 (40-59) mg/dL Cholesterol/HDL Ratio 2.70 % Comprehensive Metabolic Panel 09/07/18 Range/Units 05:45 Sodium 134 L (137-145) mmol/L Potassium 4.0 (3.6-5.0) mmol/L Chloride 99.0 (98-107) mmol/L Carbon Dioxide 26 (22-30) mmol/L BUN 12 (7-17) mg/dL Creatinine 0.9 (0.7-1.2) mg/dL Glucose 135 H (65-100) mg/dL Calcium 8.4 (8.4-10.2) mg/dL EKG interpretations - Telemetry EKG Rhythm: Sinus Rhythm Assessment and Plan - Patient Problems (1) Chest pain Current Visit: Yes Status: Acute Qualifiers: Chest pain type: unspecified Qualified Code(s): R07.9 - Chest pain, unspecified Plan to address problem: Chest pain is atypical, serial ECGs, stress test with thallium all normal. No further cardiac workup is indicated. We will sign off.
--- NOTE | 2018-09-07 15:13 | Discharge Summary ---
Providers - Providers Date of Admission: 09/06/18 12:53 Attending physician: ASHLEIGH DICKSON MD 09/06/18 Consult to Cardiac Rehabilitation [CONS] Routine Reason For Exam: Phase I 09/07/18 08:00 Consult to Wound/ET Nurse [CONS] Routine Reason For Exam: wound eval Primary care physician: FRANK GANDARA Hospitalization Reason for admission: chest pain Condition: Stable Hospital course: 38 YO Female with MO, Obesity, HTN, DM, CT, Lymphedema, Obesity Hypoventilation Syndrome presents to ED for evaluation. Pt states that she has experienced pain in her chest over the past 1 day with worsening symptoms over the past 8 hours. Pt states that pain is 6/10, substernal, radiates to back, worsened with exertion, relieved somewhat with rest, associated with shortness of breath. Pt acknowledges decreased exercise tolerance. Pt transported to [facility] via private vehicle. Pt seen and evaluated in ED and found to have Angina, and symptoms consistent with Diastolic CHF. Pt admitted to telemetry. Cardiology consulted in ED. Pt medication reconciled at time of admission. Patient had a CTA that was negative for pulmonary embolism. Also underwent a stress test was negative. I did have extensive discussion with the patient unfortunately continues to use tobacco about tobacco cessation and also follow- up with primary care physicians of family evaluate for underlying COPD. Also discussed his to hypoventilation syndrome the patient reports that she's lost some weight, still working on that. She will follow with cardiology outpatient. Echocardiogram was also reviewed and showed normal LV function. Atypical chest pain chest pain likely secondary to GERD HTN (hypertension) Diabetes Obesity hypoventilation syndrome Tobacco use syndrome Disposition: DC-01 TO HOME OR SELFCARE Time spent for discharge: 35 MINS Core Measure Documentation - Palliative Care Palliative Care/ Comfort Measures: Not Applicable - Core Measures Any of the following diagnoses?: none Exam - Physical Exam Narrative exam: VITAL SIGNS: Reviewed. GENERAL: The patient appeared well nourished and normally developed, morbidly obese, Vital signs as documented. HEAD: No signs of head trauma. EYES: Pupils are equal. Extraocular motions intact. EARS: Hearing grossly intact. MOUTH: Oropharynx is normal. NECK: No adenopathy, no JVD. CHEST: Chest with clear breath sounds bilaterally. No wheezes, rales, or rhonchi. CARDIAC: Regular rate and rhythm. S1 and S2, without murmurs, gallops, or rubs . VASCULAR: No Edema. Peripheral pulses normal and equal in all extremities. ABDOMEN: Soft, non tender and non distended. No rebound or guarding, and no masses palpated. Bowel Sounds normal. MUSCULOSKELETAL: Good range of motion of all major joints. Extremities without clubbing, cyanosis or edema. NEUROLOGIC EXAM: Alert and oriented x 3 No focal sensory or strength deficits. Speech normal. Follows commands. PSYCHIATRIC: Mood normal. SKIN: No rash or lesions. - Constitutional Vitals: Temp Pulse Resp BP Pulse Ox 98.2 F 75 18 128/79 97 09/07/18 07:40 09/07/18 07:40 09/07/18 07:40 09/07/18 11:12 09/07/18 09:01 Plan Activity: advance as tolerated, fall precautions Diet: low fat, diabetic Special Instructions: smoking cessation Follow up with: FRANK GANDARA NP-C [Primary Care Provider] - 7 Days
--- NOTE | 2018-09-07 22:36 | Treadmill Report ---
THALLIUM STRESS TEST LEFT VENTRICLE: Left ventricular chamber size is within normal spread. Perfusion study demonstrates homogeneous uptake of the tracer in all segments, no significant perfusion defects identified. Gated analysis demonstrates normal left ventricular systolic function, ejection fraction 65%. CONCLUSION: Normal myocardial perfusion study. JOB# [id number] CA/NTS
== END 2018-09-07 16:07 | disposition home or self-care (01) ==
LOC: ED 08:45 → 4A 12:53 → INTOOBSV 12:53 → 4A 20:54
PROVIDERS: ADMIT Internal Medicine; ATTEND Internal Medicine
DX: I20.9 Angina pectoris, unspecified (principal); I50.30 Unspecified diastolic (congestive) heart failure; I11.0 Hypertensive heart disease with heart failure; E66.2 Morbid (severe) obesity with alveolar hypoventilation; E11.9 Type 2 diabetes mellitus without complications; I25.2 Old myocardial infarction; I89.0 Lymphedema, not elsewhere classified; J42 Unspecified chronic bronchitis; Z86.79 Personal history of other diseases of the circulatory system; Z82.49 Family history of ischemic heart disease and other diseases of the circulatory system
CPT/HCPCS: 36415; 71046; 71275; 78452; 80048; 80061; 82962; 83880; 84484; 84703; 85025; 85379; 93005; 93010; 93017; 93306; 96372; 99291; A9502; G0378; J1650; J2785; Q9967; C9113

== ENCOUNTER 2018-09-15 10:01 | Outpatient (CLI) | payer OTHER ==
[~2018-09-15 10:01] MED LIST: LEXISCAN IV ONE; PROTONIX PO ONE
[2018-09-15] MEDS ORDERED: XYLOCAINE TOPICAL 4% TP ONE (10:30)
== END 2018-09-15 10:02 | disposition home or self-care (01) ==
LOC: WOUND 10:01
PROVIDERS: ATTEND Surgery
DX: E11.622 Type 2 diabetes mellitus with other skin ulcer (principal); L97.212 Non-pressure chronic ulcer of right calf with fat layer exposed; I10 Essential (primary) hypertension; I89.0 Lymphedema, not elsewhere classified; I25.2 Old myocardial infarction; K21.9 Gastro-esophageal reflux disease without esophagitis; J42 Unspecified chronic bronchitis; F17.200 Nicotine dependence, unspecified, uncomplicated
CPT/HCPCS: 99215; G0463; J2785

== ENCOUNTER 2018-09-19 06:20 | Day surgery (SDC) | payer OTHER ==
[2018-09-19] MEDS ORDERED: ECOTRIN PO NR (06:42)
[2018-09-19] MEDS ORDERED: NACL 0.9% 500 ML 500 ML IV SCH (07:00)
[2018-09-19 07:26] LABS: Basophils % (Auto) 0.9 % (0.0-1.8); Eosinophils # (Auto) 0.2 K/mm3 (0.0-0.4); Eosinophils % (Auto) 3.3 % (0.0-4.3); Hematocrit 36.3 % (30.3-42.9); Hemoglobin 12.3 gm/dl (10.1-14.3); Lymphocytes % (Auto) 19.4 % (13.4-35.0); Mean Corpuscular HGB Conc 34 % (30-34); Mean Corpuscular Volume 85 fl (79-97); Monocytes # (Auto) 0.5 K/mm3 (0.0-0.8); Monocytes % (Auto) 9.1 % (0.0-7.3); Platelet Count 279 K/mm3 (140-440); Red Cell Distribution Width 14.8 % (13.2-15.2)
[2018-09-19 07:36] LABS: INR 0.94 (0.87-1.13)
[2018-09-19 07:37] LABS: Partial Thromboplastin Time 24.1 Sec. (24.2-36.6)
[2018-09-19 07:38] LABS: BUN/Creatinine Ratio 14; Blood Urea Nitrogen 11 mg/dL (7-17); Calcium 8.4 mg/dL (8.4-10.2); Hemolysis Index 47
[2018-09-19] MEDS ORDERED: HEPARIN/NS 5000 UNIT/500ML(CATH LAB) 1,000 ML IR ONE (08:17)
[2018-09-19] MEDS ORDERED: HEPARIN 10,000 UNITS/10 ML ONE (08:17)
[2018-09-19] MEDS ORDERED: NITROGLYCERIN SYRINGE 3 ML ONE (08:18)
[2018-09-19] MEDS ORDERED: CALAN ONE (08:18)
[2018-09-19] MEDS ORDERED: XYLOCAINE 2% INFILTRATI ONE (08:18)
[2018-09-19] MEDS ORDERED: VERSED ONE (08:18)
[2018-09-19] MEDS ORDERED: SUBLIMAZE ONE (08:19)
--- NOTE | 2018-09-19 10:23 | Cardiac Catherization Report ---
REFERRING PHYSICIAN: Dr. Almaguer. INDICATION FOR PROCEDURE: The patient is a pleasant 38-year-old -[place] female with multiple risk factors, recurrent chest pain, referred for left heart catheterization by Dr. Almaguer. Risks, benefits, and alternatives were discussed at length prior to obtaining informed consent. PROCEDURE IN DETAIL: The patient was brought in to the catheterization lab in a postabsorptive state and prepped and draped in sterile fashion. Miguel Ángel's test in the right hand was normal. A 2 mL of 2% lidocaine used to anesthetize the right wrist. A standard 6-Kazakh hydrophilic sheath was used to cannulate the right radial artery via modified Seldinger technique. All exchanges performed to exchange a J-tip guidewire. JL3.5 catheter was used to engage the left main. No dampening or ventricularization. Cineangiography performed in all projections. JR4 catheter used to cross the aortic valve under fluoroscopic guidance. Left ventriculography performed in 30-degree SALCEDO and 30 FAROESE projections via hand injections and catheter flushed. Manual pullback was performed with continuous pressure monitoring. Catheter used to engage the right coronary. No dampening or ventricularization. Cineangiography performed in all projections. Due to recurrent chest pain and hypertension, a root aortogram was performed in the FAROESE projection with a pigtail catheter and power injector. Next, catheter removed from the body of wire, sheath removed, manual pressure used to achieve hemostasis. There were no complications. The patient tolerated the procedure well. I directly supervised the administration of moderate sedation with fentanyl and Versed from 8:39 to 9:05 a.m. FINDINGS: The patient remained in normal sinus rhythm throughout the procedure. Aortic pressure is 150/100, LV pressure is 150, LVEDP of 18 mmHg. Left ventriculography reveals normal systolic performance with estimated ejection fraction of 55-60%. No evidence of aortic stenosis. CORONARY ANATOMY: This is a right dominant system. Right coronary is a moderate sized vessel, courses AV groove, distally bifurcates into posteromedial and posterolateral branches. No discrete stenosis identified. Next, left main without significant disease, bifurcates left anterior descending and left circumflex. No significant disease in left main. No significant disease in the left circumflex, LAD or diagonal system. Root aortography reveals normal contour, normal great vessel anatomy, no dissection, penetrating aortic ulcer or aortic insufficiency. CONCLUSIONS: 1. No angiographic evidence of significant epicardial coronary disease in this right dominant system. 2. Normal left ventricular systolic performance with estimated ejection fraction of 55-60%. 3. No evidence of aortic stenosis. 4. Normal root aortography without evidence of dissection, penetrating aortic ulcer, or aortic dissection. 5. Hypertension. At this point, the patient is clinically stable, chest pain free. Risk factor modification discussed, blood pressure control. Stable cardiac status. Follow up with Dr. Almgauer in the office. Standard radial care. JOB# [id number] SBM/NTS
--- NOTE | 2018-09-19 10:40 | Short Stay Summary ---
Short Stay Documentation Date of service: 09/19/18 - History H&P: obtained from office - Allergies and Medications Current Medications: Allergies No Known Allergies Allergy (Verified 09/06/18 08:51) Home Medications Medication Instructions Recorded Confirmed Last Taken Type Ergocalciferol [Vitamin D2] 1 cap PO QWEEK 07/25/18 09/19/18 09/13/18 History 0800 Ferrous Sulfate [Iron 325 MG] 325 mg PO DAILY 07/25/18 09/19/18 09/12/18 History 325mg Loratadine 10 mg PO DAILY 07/25/18 09/19/18 09/19/18 05:30 History Omeprazole 40 mg PO DAILY 07/25/18 09/06/18 09/19/18 05:30 History amLODIPine [Norvasc] 10 mg PO DAILY 07/25/18 09/19/18 09/19/18 05:30 History Metoprolol Xl [Metoprolol 50 mg PO DAILY 09/19/18 09/19/18 09/19/18 History SUCCINATE ER TAB] 50mg Active Medications Sodium Chloride (Nacl 0.9% 500 Ml) 500 mls @ 50 mls/hr IV DIRECT TALAT Stop: 09/19/18 16:59 Last Admin: 09/19/18 07:58 Dose: 50 mls/hr Documented by: - Brief post op/procedure progress note Date of procedure: 09/19/18 Pre-op diagnosis: recurrent cp Post-op diagnosis: same Procedure: [facility] - see dictated cath report Anesthesia: local Estimated blood loss: none Condition: stable - Disposition Condition at discharge: Good Disposition: DC-01 TO HOME OR SELFCARE - Discharge Diagnoses (1) Normal coronary arteries Status: Chronic (2) Chest pain Status: Chronic Qualifiers: Chest pain type: unspecified Qualified Code(s): R07.9 - Chest pain, unspecified Short Stay Discharge Plan Activity: advance as tolerated Diet: regular Wound: open to air, keep clean and dry, per your surgeon's advice Follow up with: FRANK GANDARA NP-C [Primary Care Provider] - 7 Days Forms: CardCath PCI D/C Instructions
[2018-09-20 18:28] VITALS: BP 153/100
== END 2018-09-19 13:06 | disposition home or self-care (01) ==
LOC: CATHLABREC 06:20
PROVIDERS: ATTEND Internal Medicine
DX: I10 Essential (primary) hypertension (principal); R07.89 Other chest pain; F17.210 Nicotine dependence, cigarettes, uncomplicated; I20.8 Other forms of angina pectoris; E11.9 Type 2 diabetes mellitus without complications; E66.2 Morbid (severe) obesity with alveolar hypoventilation; K21.9 Gastro-esophageal reflux disease without esophagitis; M19.90 Unspecified osteoarthritis, unspecified site; M06.9 Rheumatoid arthritis, unspecified; F41.9 Anxiety disorder, unspecified; D64.9 Anemia, unspecified; Z79.899 Other long term (current) drug therapy; Z79.01 Long term (current) use of anticoagulants; Z68.43 Body mass index [BMI] 50.0-59.9, adult; Z83.3 Family history of diabetes mellitus; Z98.890 Other specified postprocedural states; Z82.49 Family history of ischemic heart disease and other diseases of the circulatory system
CPT/HCPCS: 36415; 80048; 85025; 85610; 85730; 93005; 93010; 93458; 93567; 99156; 99157; C1894; J1644; J2250; J3010; J7040; Q9967

== ENCOUNTER 2018-09-21 10:14 | Outpatient (CLI) | payer OTHER ==
--- NOTE | 2018-09-21 16:25 | Vascular Lab Report ---
PROCEDURE: VL VENOUS DUPLEX LE BILAT HISTORY: Acute embolism and thrombosis FINDINGS: Real-time ultrasound of the right leg and left leg was performed using grayscale and color Doppler images. These images demonstrate no evidence of deep venous thrombus in the right or left common femoral vein , superficial femoral vein, popliteal vein or posterior tibial vein. Deep venous reflux was seen in the right common femoral vein, lasting 2300 ms. Deep venous reflux was seen in the left common femoral vein lasting 2600 ms. No evidence of superficial venous reflux was seen in the right leg. Superficial venous reflux was see n in the left saphenofemoral junction lasting 2658 ms. There is a left popliteal cyst, 4.1 x 2.0 cm. There is a right popliteal cyst 2.1 x 3.3 cm. IMPRESSION: No DVT in either leg Bilateral deep venous reflux Left superficial venous reflux Bilateral popliteal cysts This document is electronically signed by Barry Dewey MD., September 21 2018 04:23:37 PM ET
--- NOTE | 2018-09-21 16:28 | Vascular Lab Report ---
PROCEDURE: VL ARTERIAL DUPLEX LE BILAT HISTORY: Acute embolism and thrombosis FINDINGS: Real-time ultrasound of the right leg and left leg was performed using grayscale and color Doppler images. On the right, peak systolic velocity in the right common femoral artery was 68 cm/s; deep femoral art lynda 59 cm/s; proximal SFA 78 cm/s; mid SFA 65 cm/s; distal SFA 59 cm/s; popliteal 77 cm/s; posterior tibial 68 cm/s; anterior tibial 78 cm/s. Waveforms throughout the right leg were triphasic. On the left, peak systolic velocity in the common femoral artery was 86 cm/s; deep femoral artery 61 cm/s; proximal SFA 100 cm/s; mid SFA 72 cm/s; distal SFA 55 cm/s; popliteal 81 cm/s; posterior tibial 41 cm/s; anterior tibial 80 cm/s. IMPRESSION: The leg arterial vasculature appears patent bilaterally. This document is electronically signed by Barry Dewey MD., September 21 2018 04:26:50 PM ET
== END 2018-09-21 10:15 | disposition home or self-care (01) ==
LOC: VAS 10:14
PROVIDERS: ATTEND Surgery
DX: I82.403 Acute embolism and thrombosis of unspecified deep veins of lower extremity, bilateral (principal); L97.212 Non-pressure chronic ulcer of right calf with fat layer exposed; M71.22 Synovial cyst of popliteal space [Baker], left knee; M71.21 Synovial cyst of popliteal space [Baker], right knee; I11.0 Hypertensive heart disease with heart failure; I50.30 Unspecified diastolic (congestive) heart failure; E66.2 Morbid (severe) obesity with alveolar hypoventilation; K21.9 Gastro-esophageal reflux disease without esophagitis
CPT/HCPCS: 93925; 93970

== ENCOUNTER 2018-09-30 11:06 | Outpatient (CLI) | payer OTHER ==
[2018-09-30] MEDS ORDERED: XYLOCAINE TOPICAL 4% TP ONE (12:11)
[2018-10-01] MEDS ORDERED: AD OINTMENT TP SCH (10:00)
== END 2018-09-30 11:07 | disposition home or self-care (01) ==
LOC: WOUND 11:06
PROVIDERS: ATTEND Surgery
DX: E11.622 Type 2 diabetes mellitus with other skin ulcer (principal); L97.218 Non-pressure chronic ulcer of right calf with other specified severity; I10 Essential (primary) hypertension; I89.0 Lymphedema, not elsewhere classified; I25.2 Old myocardial infarction; F17.200 Nicotine dependence, unspecified, uncomplicated
CPT/HCPCS: 99215; G0463

== ENCOUNTER 2019-02-13 13:10 | Outpatient (CLI) | payer OTHER ==
[2019-02-13] MEDS ORDERED: XYLOCAINE TOPICAL 4% TP NR (14:00)
== END 2019-02-13 13:11 | disposition home or self-care (01) ==
LOC: WOUND 13:10
PROVIDERS: ATTEND Surgery
DX: E11.622 Type 2 diabetes mellitus with other skin ulcer (principal); L97.811 Non-pressure chronic ulcer of other part of right lower leg limited to breakdown of skin; I10 Essential (primary) hypertension; I89.0 Lymphedema, not elsewhere classified; I25.2 Old myocardial infarction; F17.200 Nicotine dependence, unspecified, uncomplicated
CPT/HCPCS: 97597; G0463; 99215

== ENCOUNTER 2019-02-20 11:12 | Outpatient (CLI) | payer OTHER | END 2019-02-20 11:13 | disposition home or self-care (01) | LOC: WOUND 11:12 | PROVIDERS: ATTEND Surgery | DX: E11.622 Type 2 diabetes mellitus with other skin ulcer (principal); L97.811 Non-pressure chronic ulcer of other part of right lower leg limited to breakdown of skin; I10 Essential (primary) hypertension; I89.0 Lymphedema, not elsewhere classified; I25.2 Old myocardial infarction; F17.200 Nicotine dependence, unspecified, uncomplicated | CPT/HCPCS: 87116; G0463; 99214 ==

== ENCOUNTER 2019-03-13 11:05 | Outpatient (CLI) | payer OTHER | END 2019-03-13 11:06 | disposition home or self-care (01) | LOC: WOUND 11:05 | PROVIDERS: ATTEND Surgery | DX: I87.311 Chronic venous hypertension (idiopathic) with ulcer of right lower extremity (principal); E11.622 Type 2 diabetes mellitus with other skin ulcer; L97.811 Non-pressure chronic ulcer of other part of right lower leg limited to breakdown of skin; I10 Essential (primary) hypertension; I89.0 Lymphedema, not elsewhere classified; I25.2 Old myocardial infarction; F17.200 Nicotine dependence, unspecified, uncomplicated | CPT/HCPCS: 99214; G0463 ==

== ENCOUNTER 2019-05-10 11:11 | Outpatient (CLI) | payer OTHER ==
[2019-05-10] MEDS ORDERED: LIDOCAINE (4%) 40 MG/ML TOPICAL SOLN 50 ML BOTTLE TP ONE (12:00)
== END 2019-05-10 11:12 | disposition home or self-care (01) ==
LOC: WOUND 11:11
PROVIDERS: ATTEND Surgery
DX: I87.311 Chronic venous hypertension (idiopathic) with ulcer of right lower extremity (principal); E11.622 Type 2 diabetes mellitus with other skin ulcer; L97.811 Non-pressure chronic ulcer of other part of right lower leg limited to breakdown of skin; I10 Essential (primary) hypertension; I89.0 Lymphedema, not elsewhere classified; I25.2 Old myocardial infarction; F17.200 Nicotine dependence, unspecified, uncomplicated

== ENCOUNTER 2019-05-22 13:10 | Outpatient (CLI) | payer OTHER ==
[2019-05-22] MEDS ORDERED: LIDOCAINE (4%) 40 MG/ML TOPICAL SOLN 50 ML BOTTLE TP ONE (13:13)
== END 2019-05-22 13:11 | disposition home or self-care (01) ==
LOC: WOUND 13:10
PROVIDERS: ATTEND Surgery
DX: E11.622 Type 2 diabetes mellitus with other skin ulcer (principal); L97.812 Non-pressure chronic ulcer of other part of right lower leg with fat layer exposed; I10 Essential (primary) hypertension; I89.0 Lymphedema, not elsewhere classified; I25.2 Old myocardial infarction; F17.200 Nicotine dependence, unspecified, uncomplicated
CPT/HCPCS: 87116

== ENCOUNTER 2019-06-05 13:02 | Outpatient (CLI) | payer OTHER ==
[2019-06-05] MEDS ORDERED: LIDOCAINE (4%) 40 MG/ML TOPICAL SOLN 50 ML BOTTLE TP ONE (14:08)
== END 2019-06-05 13:03 | disposition home or self-care (01) ==
LOC: WOUND 13:02
PROVIDERS: ATTEND Surgery
DX: I87.311 Chronic venous hypertension (idiopathic) with ulcer of right lower extremity (principal); E11.622 Type 2 diabetes mellitus with other skin ulcer; L97.811 Non-pressure chronic ulcer of other part of right lower leg limited to breakdown of skin; I10 Essential (primary) hypertension; I89.0 Lymphedema, not elsewhere classified; I25.2 Old myocardial infarction; F17.200 Nicotine dependence, unspecified, uncomplicated

== ENCOUNTER 2019-06-12 13:36 | Outpatient (CLI) | payer OTHER ==
[2019-06-12] MEDS ORDERED: LIDOCAINE (4%) 40 MG/ML TOPICAL SOLN 50 ML BOTTLE TP ONE (13:53)
== END 2019-06-12 13:37 | disposition home or self-care (01) ==
LOC: WOUND 13:36
PROVIDERS: ATTEND Surgery
DX: E11.622 Type 2 diabetes mellitus with other skin ulcer (principal); L97.811 Non-pressure chronic ulcer of other part of right lower leg limited to breakdown of skin; I10 Essential (primary) hypertension; I89.0 Lymphedema, not elsewhere classified; I25.2 Old myocardial infarction; F17.200 Nicotine dependence, unspecified, uncomplicated
CPT/HCPCS: 99215; G0463

== ENCOUNTER 2019-06-19 13:33 | Outpatient (CLI) | payer OTHER ==
[2019-06-19] MEDS ORDERED: LIDOCAINE (4%) 40 MG/ML TOPICAL SOLN 50 ML BOTTLE TP ONE (13:37)
== END 2019-06-19 13:34 | disposition home or self-care (01) ==
LOC: WOUND 13:33
PROVIDERS: ATTEND Surgery
DX: E11.622 Type 2 diabetes mellitus with other skin ulcer (principal); L97.812 Non-pressure chronic ulcer of other part of right lower leg with fat layer exposed; I10 Essential (primary) hypertension; I89.0 Lymphedema, not elsewhere classified; I25.2 Old myocardial infarction; F17.200 Nicotine dependence, unspecified, uncomplicated
CPT/HCPCS: 97607

== ENCOUNTER 2019-06-26 13:38 | Outpatient (CLI) | payer OTHER ==
[2019-06-26] MEDS ORDERED: LIDOCAINE (4%) 40 MG/ML TOPICAL SOLN 50 ML BOTTLE TP ONE (13:43)
== END 2019-06-26 13:39 | disposition home or self-care (01) ==
LOC: WOUND 13:38
PROVIDERS: ATTEND Surgery
DX: E11.622 Type 2 diabetes mellitus with other skin ulcer (principal); L97.811 Non-pressure chronic ulcer of other part of right lower leg limited to breakdown of skin; I87.2 Venous insufficiency (chronic) (peripheral); I10 Essential (primary) hypertension; I89.0 Lymphedema, not elsewhere classified; I25.2 Old myocardial infarction; F17.200 Nicotine dependence, unspecified, uncomplicated
CPT/HCPCS: 97607

== ENCOUNTER 2019-07-10 13:32 | Outpatient (CLI) | payer OTHER ==
[2019-07-10] MEDS ORDERED: LIDOCAINE (4%) 40 MG/ML TOPICAL SOLN 50 ML BOTTLE TP ONE (14:00)
== END 2019-07-10 13:33 | disposition home or self-care (01) ==
LOC: WOUND 13:32
PROVIDERS: ATTEND Surgery
DX: E11.622 Type 2 diabetes mellitus with other skin ulcer (principal); L97.811 Non-pressure chronic ulcer of other part of right lower leg limited to breakdown of skin; I87.2 Venous insufficiency (chronic) (peripheral); I10 Essential (primary) hypertension; I89.0 Lymphedema, not elsewhere classified; I25.2 Old myocardial infarction; F17.200 Nicotine dependence, unspecified, uncomplicated

== ENCOUNTER 2019-07-24 13:23 | Outpatient (CLI) | payer OTHER | END 2019-07-24 13:24 | disposition home or self-care (01) | LOC: WOUND 13:23 | PROVIDERS: ATTEND Surgery | DX: E11.622 Type 2 diabetes mellitus with other skin ulcer (principal); L97.811 Non-pressure chronic ulcer of other part of right lower leg limited to breakdown of skin; I87.2 Venous insufficiency (chronic) (peripheral); I10 Essential (primary) hypertension; I89.0 Lymphedema, not elsewhere classified; I25.2 Old myocardial infarction; F17.200 Nicotine dependence, unspecified, uncomplicated | CPT/HCPCS: 99213; G0463 ==

== ENCOUNTER 2019-09-11 10:28 | Outpatient (CLI) | payer OTHER ==
[2019-09-11] MEDS ORDERED: LIDOCAINE (4%) 40 MG/ML TOPICAL SOLN 50 ML BOTTLE TP ONE (10:34)
== END 2019-09-11 10:29 | disposition home or self-care (01) ==
LOC: WOUND 10:28
PROVIDERS: ATTEND Surgery
DX: E11.622 Type 2 diabetes mellitus with other skin ulcer (principal); L97.818 Non-pressure chronic ulcer of other part of right lower leg with other specified severity; I87.2 Venous insufficiency (chronic) (peripheral); I10 Essential (primary) hypertension; I89.0 Lymphedema, not elsewhere classified; I25.2 Old myocardial infarction; F17.200 Nicotine dependence, unspecified, uncomplicated
CPT/HCPCS: 99213; G0463

== ENCOUNTER 2020-02-19 13:27 | Outpatient (CLI) | payer OTHER ==
[2020-02-19] MEDS ORDERED: LIDOCAINE (4%) 40 MG/ML TOPICAL SOLN 50 ML BOTTLE TP ONE (13:43)
== END 2020-02-19 13:28 | disposition home or self-care (01) ==
LOC: WOUND 13:27
PROVIDERS: ATTEND Surgery
DX: E11.622 Type 2 diabetes mellitus with other skin ulcer (principal); L97.812 Non-pressure chronic ulcer of other part of right lower leg with fat layer exposed; L97.822 Non-pressure chronic ulcer of other part of left lower leg with fat layer exposed; I87.2 Venous insufficiency (chronic) (peripheral); I10 Essential (primary) hypertension; I89.0 Lymphedema, not elsewhere classified; F17.200 Nicotine dependence, unspecified, uncomplicated; Z79.84 Long term (current) use of oral hypoglycemic drugs
CPT/HCPCS: 10060; 82962

== ENCOUNTER 2020-03-04 10:31 | Outpatient (CLI) | payer OTHER ==
[2020-03-04] MEDS ORDERED: LIDOCAINE (4%) 40 MG/ML TOPICAL SOLN 50 ML BOTTLE TP NR (10:39)
== END 2020-03-04 10:32 | disposition home or self-care (01) ==
LOC: WOUND 10:31
PROVIDERS: ATTEND Surgery
DX: E11.622 Type 2 diabetes mellitus with other skin ulcer (principal); I87.311 Chronic venous hypertension (idiopathic) with ulcer of right lower extremity; L97.812 Non-pressure chronic ulcer of other part of right lower leg with fat layer exposed; L97.902 Non-pressure chronic ulcer of unspecified part of unspecified lower leg with fat layer exposed; I87.2 Venous insufficiency (chronic) (peripheral); I10 Essential (primary) hypertension; I89.0 Lymphedema, not elsewhere classified; F17.200 Nicotine dependence, unspecified, uncomplicated; Z79.84 Long term (current) use of oral hypoglycemic drugs

== ENCOUNTER 2020-03-18 10:37 | Outpatient (CLI) | payer OTHER ==
[2020-03-18] MEDS ORDERED: LIDOCAINE (4%) 40 MG/ML TOPICAL SOLN 50 ML BOTTLE TP ONE (10:38)
== END 2020-03-18 10:38 | disposition home or self-care (01) ==
LOC: WOUND 10:37
PROVIDERS: ATTEND Surgery
DX: E11.622 Type 2 diabetes mellitus with other skin ulcer (principal); I87.311 Chronic venous hypertension (idiopathic) with ulcer of right lower extremity; L97.812 Non-pressure chronic ulcer of other part of right lower leg with fat layer exposed; L97.902 Non-pressure chronic ulcer of unspecified part of unspecified lower leg with fat layer exposed; I87.2 Venous insufficiency (chronic) (peripheral); I10 Essential (primary) hypertension; I89.0 Lymphedema, not elsewhere classified; F17.200 Nicotine dependence, unspecified, uncomplicated; Z79.84 Long term (current) use of oral hypoglycemic drugs

== ENCOUNTER 2020-04-01 10:34 | Outpatient (CLI) | payer OTHER ==
[2020-04-01] MEDS ORDERED: LIDOCAINE (4%) 40 MG/ML TOPICAL SOLN 50 ML BOTTLE TP ONE (10:44)
== END 2020-04-01 10:35 | disposition home or self-care (01) ==
LOC: WOUND 10:34
PROVIDERS: ATTEND Surgery
DX: E11.622 Type 2 diabetes mellitus with other skin ulcer (principal); I87.311 Chronic venous hypertension (idiopathic) with ulcer of right lower extremity; L97.812 Non-pressure chronic ulcer of other part of right lower leg with fat layer exposed; I87.2 Venous insufficiency (chronic) (peripheral); I10 Essential (primary) hypertension; I89.0 Lymphedema, not elsewhere classified; F17.200 Nicotine dependence, unspecified, uncomplicated; Z79.84 Long term (current) use of oral hypoglycemic drugs
CPT/HCPCS: 99215; G0463

== ENCOUNTER 2020-04-15 10:38 | Outpatient (CLI) | payer OTHER ==
[2020-04-15] MEDS ORDERED: LIDOCAINE (4%) 40 MG/ML TOPICAL SOLN 50 ML BOTTLE TP ONE (10:40)
== END 2020-04-15 10:39 | disposition home or self-care (01) ==
LOC: WOUND 10:38
PROVIDERS: ATTEND Surgery
DX: E11.622 Type 2 diabetes mellitus with other skin ulcer (principal); I87.311 Chronic venous hypertension (idiopathic) with ulcer of right lower extremity; L97.812 Non-pressure chronic ulcer of other part of right lower leg with fat layer exposed; I87.2 Venous insufficiency (chronic) (peripheral); I10 Essential (primary) hypertension; I89.0 Lymphedema, not elsewhere classified; F17.200 Nicotine dependence, unspecified, uncomplicated; Z79.84 Long term (current) use of oral hypoglycemic drugs
CPT/HCPCS: 87075; 87076; 87116; 87186; 97607

== ENCOUNTER 2020-04-22 10:40 | Outpatient (CLI) | payer OTHER ==
[2020-04-22] MEDS ORDERED: LIDOCAINE (4%) 40 MG/ML TOPICAL SOLN 50 ML BOTTLE TP ONE (11:38)
== END 2020-04-22 10:41 | disposition home or self-care (01) ==
LOC: WOUND 10:40
PROVIDERS: ATTEND Surgery
DX: E11.622 Type 2 diabetes mellitus with other skin ulcer (principal); I87.311 Chronic venous hypertension (idiopathic) with ulcer of right lower extremity; L97.812 Non-pressure chronic ulcer of other part of right lower leg with fat layer exposed; I87.2 Venous insufficiency (chronic) (peripheral); I10 Essential (primary) hypertension; I89.0 Lymphedema, not elsewhere classified; F17.200 Nicotine dependence, unspecified, uncomplicated; Z79.84 Long term (current) use of oral hypoglycemic drugs
CPT/HCPCS: 99214; G0463

== ENCOUNTER 2020-05-06 10:33 | Outpatient (CLI) | payer OTHER ==
[2020-05-06] MEDS ORDERED: LIDOCAINE (4%) 40 MG/ML TOPICAL SOLN 50 ML BOTTLE TP SCH (10:39)
== END 2020-05-06 10:34 | disposition home or self-care (01) ==
LOC: WOUND 10:33
PROVIDERS: ATTEND Surgery
DX: E11.622 Type 2 diabetes mellitus with other skin ulcer (principal); I87.311 Chronic venous hypertension (idiopathic) with ulcer of right lower extremity; L97.812 Non-pressure chronic ulcer of other part of right lower leg with fat layer exposed; I87.2 Venous insufficiency (chronic) (peripheral); I10 Essential (primary) hypertension; I89.0 Lymphedema, not elsewhere classified; F17.200 Nicotine dependence, unspecified, uncomplicated; Z79.84 Long term (current) use of oral hypoglycemic drugs

== ENCOUNTER 2020-05-09 11:27 | Day surgery (SDC) | payer OTHER ==
[2020-05-09] MEDS ORDERED: LIDOCAINE (1%) 10 MG/1 ML VIAL 20 ML MDV ONE (12:22)
[2020-05-09] MEDS ORDERED: BUPIVACAINE/PF (0.25%) 2.5 MG/ML 30 ML VIAL INFILTRATI ONE ×2 (12:22→13:51)
[2020-05-09 12:47] LABS: Hematocrit 32.4 % (30.3-42.9); Hemoglobin 10.7 gm/dl (10.1-14.3); Mean Corpuscular HGB Conc 33 % (30-34); Mean Corpuscular Volume 82 fl (79-97); Platelet Count 391 K/mm3 (140-440); Red Blood Count 3.95 M/mm3 (3.65-5.03); Red Cell Distribution Width 16.5 % (13.2-15.2)
[2020-05-09 13:07] LABS: BUN/Creatinine Ratio 10; Blood Urea Nitrogen 11 mg/dL (7-17); Calcium 9.6 mg/dL (8.4-10.2); Hemolysis Index 3
[2020-05-09] MEDS ORDERED: LACTATED RINGERS 1,000 ML ONE (13:13)
[2020-05-09] MEDS ORDERED: ONDANSETRON 4 MG/2 ML INJ IV PRN (13:14)
[2020-05-09] MEDS ORDERED: HYDROmorphone 1 MG/1 ML INJ IV PRN (13:14)
[2020-05-09] MEDS ORDERED: propofoL 200 MG/20 ML VIAL IV ONE (13:14)
[2020-05-09] MEDS ORDERED: LIDOCAINE MPF (2%) 20 MG/1 ML VIAL 5 ML ONE (13:14)
[2020-05-09] MEDS ORDERED: LACTATED RINGERS 1,000 ML IV SCH (13:15)
[2020-05-09] MEDS ORDERED: MORPHINE 2 MG/1 ML INJ IV ONE (13:15)
--- NOTE | 2020-05-09 13:15 | Anesthesia Day of Surgery ---
Anesthesia Day of Surgery - Day of Surgery Patient Examined: Yes Patient H&P Reviewed: Yes Patient is NPO: Yes Beta Blockers: Yes
--- NOTE | 2020-05-09 13:19 | Anesthesia Consultation ---
Anesthesia Consult and Med Hx Date of service: 05/09/20 - Airway Anesthetic Teeth Evaluation: Caps ROM Head & Neck: Adequate Mental/Hyoid Distance: Adequate Mallampati Class: Class II Intubation Access Assessment: Good - Pre-Operative Health Status ASA Pre-Surgery Classification: ASA3 Proposed Anesthetic Plan: General (Pt requests GA; refuses MAC) - Pulmonary Hx Smoking: Yes (1/2 PPD X 20 YRS) Hx Asthma: Yes (NEB 3X/DAY , INHALER BID) Hx Respiratory Symptoms: No (+2FS) SOB: Yes (SOB. Chronic bronchitis) COPD: No Hx Pneumonia: No Hx Sleep Apnea: Yes (DX SLEEP APNEA, NO CPAP USE- NEEDS NEW STUDY) - Cardiovascular System Hx Hypertension: Yes (X 20 YRS) Hx Coronary Artery Disease: No (Pt reports angioplasty 2018) Hx Heart Attack/AMI: Yes (?2011- PT UNSURE) Hx Peripheral Vascular Disease: Yes (JASON LYMPHEDEMA SINCE AGE 15 YRS) - Central Nervous System Hx Psychiatric Problems: Yes (Anxiety) - Gastrointestinal Hx Ulcer: Yes Hx Gastroesophageal Reflux Disease: Yes (S/P gastric bypass) - Endocrine Hx Renal Disease: No Hx End Stage Renal Disease: No Hx Non-Insulin Dependent Diabetes: Yes Hx Thyroid Disease: No - Hematic Hx Anemia: Yes Hx Sickle Cell Disease: No - Other Systems Hx Alcohol Use: Yes (2-3 DRINKS PER DAY) Hx Cancer: No Hx Obesity: Yes
[2020-05-09] MEDS ORDERED: metroNIDAZOLE/NS 500 MG/100 ML 500 MG/100 ML BAG IV ONE (13:28)
[2020-05-09] MEDS ORDERED: LIDOCAINE (1%) 10 MG/1 ML VIAL 20 ML MDV INFILTRATI ONE (13:52)
[2020-05-09] MEDS ORDERED: SODIUM CHLORIDE 0.9% IRR 1,500 ML BOTTLE IR ONE (13:52)
[2020-05-09] MEDS ORDERED: metroNIDAZOLE/NS 500 MG/100 ML 500 MG/100 ML BAG IV NR (14:00)
[2020-05-09] MEDS ORDERED: MIDAZOLAM 2 MG/2 ML INJ IV NR (14:00)
[2020-05-09] MEDS ORDERED: ONDANSETRON 4 MG/2 ML INJ ONE (14:16)
--- NOTE | 2020-05-09 14:18 | Short Stay Summary ---
Short Stay Documentation Date of service: 05/09/20 - History Principal diagnosis: right anterior leg wound with cyst H&P: obtained from office - Allergies and Medications Current Medications: Allergies No Known Allergies Allergy (Verified 09/06/18 08:51) Home Medications Medication Instructions Recorded Confirmed Last Taken Type Ergocalciferol [Vitamin D2] 50,000 unit PO QWEEK 07/25/18 05/09/20 05/06/20 09:00 History Ferrous Sulfate [Iron 325 MG] 325 mg PO Q48HR 07/25/18 05/09/20 05/07/20 09:00 History Loratadine 10 mg PO DAILY 07/25/18 05/09/20 05/08/20 09:00 History Omeprazole 40 mg PO DAILY 07/25/18 05/09/20 05/07/20 09:00 History amLODIPine 10 mg PO DAILY 07/25/18 05/09/20 05/08/20 17:00 History Metoprolol Xl [Metoprolol 50 mg PO DAILY 09/19/18 05/09/20 05/09/20 09:30 History SUCCINATE ER TAB] ALBUTEROL NEB's [Proventil 0.083% 1 dose IH TID 05/08/20 05/09/20 05/09/20 10:00 History NEBS] AtorvaSTATin [Lipitor] 40 mg PO QHS 05/08/20 05/09/20 05/08/20 19:00 History Chlorthalidone [Thalitone] 25 mg PO QDAY 05/08/20 05/09/20 05/08/20 09:00 History Fluticasone/Salmeterol [Advair 1 puff IH BID 05/08/20 05/09/20 05/08/20 10:00 History Diskus 250-50 mcg] ISOSORBIDE MONOnitrate [Imdur ER] 30 mg PO DAILY 05/08/20 05/09/20 05/09/20 09:30 History metFORMIN [Glucophage] 500 mg PO BID 05/08/20 05/09/20 05/08/20 17:00 History Active Medications Hydromorphone HCl (Dilaudid) 0.25 mg IV Q10MIN PRN PRN Reason: Pain, Moderate (4-6) Stop: 05/09/20 23:59 Hydromorphone HCl (Dilaudid) 0.5 mg IV Q10MIN PRN PRN Reason: Pain , Severe (7-10) Stop: 05/09/20 23:59 Lactated Ringer's (Lactated Ringers) 1,000 mls @ 125 mls/hr IV DIRECT TALAT Last Admin: 05/09/20 13:00 Dose: 125 mls/hr Documented by: Levofloxacin/Dextrose (Levaquin 500mg/100ml) 500 mg in 100 mls @ 100 mls/hr IV PREOP NR; Protocol Stop: 05/09/20 14:59 Metronidazole (Flagyl 500 Mg/100 Ml) 500 mg in 100 mls @ 200 mls/hr IV PREOP NR; Protocol Stop: 05/09/20 14:29 Midazolam HCl (Versed) 2 mg IV PREOP NR Stop: 05/09/20 23:59 Last Admin: 05/09/20 13:25 Dose: 2 mg Documented by: Ondansetron HCl (Zofran) 4 mg IV ONCE PRN PRN Reason: Nausea And Vomiting Stop: 05/09/20 23:59 - Brief post op/procedure progress note Date of procedure: 05/09/20 Pre-op diagnosis: right anterior leg wound with cyst Post-op diagnosis: same Procedure: excisional debridement of right lower leg wound with excision of cyst Anesthesia: GETA, local Findings: chronically inflamed cyst of right lower leg with drainage, open wound. Surgeon: GERTRUDIS FIGUEROA Estimated blood loss: minimal Pathology: list (cyst of right leg) Specimen disposition: to lab Condition: stable - Hospital course Hospital course: Pt observed in PACU and discharged to home in stable condition when criteria met - Disposition Condition at discharge: Good Disposition: DC-01 TO HOME OR SELFCARE Short Stay Discharge Plan Activity: no restrictions Diet: regular Wound: per your surgeon's advice Additional Instructions: Wound care instructions RIGHT LEG: First dressing change: Remove dressing and packing on Friday 05/11. Cleanse wound with soap and water. Pack wound gently with alginate and cover with foam dressing. Second dressing change: Will be performed at your wound care visit on Sunday 05/13 Follow up with: FRANK GANDARA NP-C [Primary Care Provider] - 7 Days GERTRUDIS FIGUEROA DO [Staff Physician] - 05/13/20 Prescriptions: HYDROcodone/APAP 5-325 [[place]acc[place] 5/325] 1 each PO Q6HR PRN #15 tablet PRN Reason: Pain , Severe (7-10)
[2020-05-09] MEDS ORDERED: ALBUTEROL 2.5 MG/3 ML NEBU IH ONE ×2 (14:33→16:00)
[2020-05-09] MEDS ORDERED: SODIUM CHLORIDE FOR INHALATION NEBU 3 ML ONE (14:33)
[2020-05-09] MEDS: HYDROmorphone 1 MG/1 ML INJ IV PRN ×2 (14:40→14:50)
[2020-05-09] MEDS ORDERED: HYDROcodone/ACETAMINOPHEN 5-325 MG TAB PO PRN (15:02)
[2020-05-09 15:03] VITALS: BP 131/82
--- NOTE | 2020-05-09 16:21 | Operative Report ---
Operative Report Operative Report: Date of procedure: 05/09/20 Pre-op diagnosis: right anterior leg wound with cyst Post-op diagnosis: same Procedure: excisional debridement of right lower leg wound with excision of cyst Anesthesia: GETA, local Findings: chronically inflamed cyst of right lower leg with drainage, open wound. Surgeon: GERTRUDIS FIGUEROA Estimated blood loss: minimal Pathology: list (cyst of right leg) Specimen disposition: to lab Condition: stable Hospital course: Pt observed in PACU and discharged to home in stable condition when criteria met HPI and indication: 39 yo F with hx of chronic wounds of RLE, b/l LE venous reflux and subcutaneous cysts who is being managed in the wound care center. Patient has had recurrence of the same wound despite aggressive wound care due to underling infected cyst. Recommendation was to debride the wound and excise the cyst in its entirety. Patient agreed and consent obtained. All risks, benefits, alternatives to surgery discussed. Procedure in detail: Pt identified in the preop area and surgical site marked. The patient was taken back to the operating room and placed on the operating room table in supine position. The right anterior lower leg was prepped and draped in sterile fashion and time out performed. Local anesthetic was infiltrated into the skin at the intended incision site. Using a 15 blade the skin around the wound was incised circumfrentially. The dissection was carried down through the skin and subcutaneous tissue until the cyst was encountered. The wall was chronically thickened containing white fluid. This was dissected free from the surrounding tissue using electrocautery and excised from the wound along with the overlying skin. The underlying subcutaneous tissue was normal without inflammation. Hemostasis was achieved with electrocautery. The wound was irrigated. Hemostasis ensured and wound packed with 1 piece of 1/4 inch iodoform packing. The wound was covered with 4x4 gauze, ABD pad and wrapped with kerlix. At the end of the case, all sponge, instrument, sharp counts were correctx 2. The patient was awoken from anesthesia, extubated and taken to PACU in stable condition.
--- NOTE | 2020-05-09 16:47 | Post Anesthesia Evaluation ---
- Post Anesthesia Evaluation Patient Participated: Yes Airway Patent: Yes Stable Respiratory Function: Yes Nausea/Vomiting: No Temp > 96.8F: Yes Pain Manageable: Yes Adequeate Hydration: Yes Anesthesia Complications: No Block Receding Appropriately: Not Applicable Patient on Ventilator: No
== END 2020-05-09 15:55 | disposition home or self-care (01) ==
LOC: OR 11:27
PROVIDERS: ATTEND Surgery
DX: S81.801A Unspecified open wound, right lower leg, initial encounter (principal); L72.8 Other follicular cysts of the skin and subcutaneous tissue; I20.8 Other forms of angina pectoris; I10 Essential (primary) hypertension; E11.51 Type 2 diabetes mellitus with diabetic peripheral angiopathy without gangrene; J45.909 Unspecified asthma, uncomplicated; G47.30 Sleep apnea, unspecified; K21.9 Gastro-esophageal reflux disease without esophagitis; F41.9 Anxiety disorder, unspecified; Z68.42 Body mass index [BMI] 45.0-49.9, adult; Z79.899 Other long term (current) drug therapy; Z79.84 Long term (current) use of oral hypoglycemic drugs; Z72.89 Other problems related to lifestyle; Z98.890 Other specified postprocedural states; Z83.3 Family history of diabetes mellitus; Z82.49 Family history of ischemic heart disease and other diseases of the circulatory system; X58.XXXA Exposure to other specified factors, initial encounter; Y93.89 Activity, other specified; Y92.89 Other specified places as the place of occurrence of the external cause; Y99.8 Other external cause status
CPT/HCPCS: 11042; 36415; 80048; 81025; 82962; 85027; 88305; 88312; J1170; J1956; J2250; J2405; J2704; J7120; 88304

== ENCOUNTER 2020-05-13 10:37 | Outpatient (CLI) | payer OTHER ==
[2020-05-13] MEDS ORDERED: LIDOCAINE (4%) 40 MG/ML TOPICAL SOLN 50 ML BOTTLE TP ONE (10:44)
== END 2020-05-13 10:38 | disposition home or self-care (01) ==
LOC: WOUND 10:37
PROVIDERS: ATTEND Surgery
DX: E11.622 Type 2 diabetes mellitus with other skin ulcer (principal); I87.311 Chronic venous hypertension (idiopathic) with ulcer of right lower extremity; L97.812 Non-pressure chronic ulcer of other part of right lower leg with fat layer exposed; I87.2 Venous insufficiency (chronic) (peripheral); I10 Essential (primary) hypertension; I89.0 Lymphedema, not elsewhere classified; F17.200 Nicotine dependence, unspecified, uncomplicated; Z79.84 Long term (current) use of oral hypoglycemic drugs
CPT/HCPCS: 97607

== ENCOUNTER 2020-05-17 10:33 | Outpatient (CLI) | payer OTHER | END 2020-05-17 10:34 | disposition home or self-care (01) | LOC: WOUND 10:33 | PROVIDERS: ATTEND Surgery | DX: I87.311 Chronic venous hypertension (idiopathic) with ulcer of right lower extremity (principal); E11.622 Type 2 diabetes mellitus with other skin ulcer; L97.812 Non-pressure chronic ulcer of other part of right lower leg with fat layer exposed; I10 Essential (primary) hypertension; I89.0 Lymphedema, not elsewhere classified; F17.200 Nicotine dependence, unspecified, uncomplicated; Z79.84 Long term (current) use of oral hypoglycemic drugs | CPT/HCPCS: 97607 ==

== ENCOUNTER 2020-05-20 10:48 | Outpatient (CLI) | payer OTHER ==
[2020-05-20] MEDS ORDERED: LIDOCAINE (4%) 40 MG/ML TOPICAL SOLN 50 ML BOTTLE TP ONE (11:00)
== END 2020-05-20 10:49 | disposition home or self-care (01) ==
LOC: WOUND 10:48
PROVIDERS: ATTEND Surgery
DX: I87.311 Chronic venous hypertension (idiopathic) with ulcer of right lower extremity (principal); E11.622 Type 2 diabetes mellitus with other skin ulcer; L97.812 Non-pressure chronic ulcer of other part of right lower leg with fat layer exposed; I10 Essential (primary) hypertension; I89.0 Lymphedema, not elsewhere classified; F17.200 Nicotine dependence, unspecified, uncomplicated; Z79.84 Long term (current) use of oral hypoglycemic drugs
CPT/HCPCS: 97607

== ENCOUNTER 2020-05-24 10:25 | Outpatient (CLI) | payer OTHER | END 2020-05-24 10:26 | disposition home or self-care (01) | LOC: WOUND 10:25 | PROVIDERS: ATTEND Surgery | DX: I87.311 Chronic venous hypertension (idiopathic) with ulcer of right lower extremity (principal); E11.622 Type 2 diabetes mellitus with other skin ulcer; L97.812 Non-pressure chronic ulcer of other part of right lower leg with fat layer exposed; I10 Essential (primary) hypertension; I89.0 Lymphedema, not elsewhere classified; F17.200 Nicotine dependence, unspecified, uncomplicated; Z79.84 Long term (current) use of oral hypoglycemic drugs | CPT/HCPCS: 97605 ==

== ENCOUNTER 2020-05-27 10:30 | Outpatient (CLI) | payer OTHER ==
[2020-05-27] MEDS ORDERED: LIDOCAINE (4%) 40 MG/ML TOPICAL SOLN 50 ML BOTTLE TP ONE (10:44)
== END 2020-05-27 10:31 | disposition home or self-care (01) ==
LOC: WOUND 10:30
PROVIDERS: ATTEND Surgery
DX: I87.311 Chronic venous hypertension (idiopathic) with ulcer of right lower extremity (principal); E11.622 Type 2 diabetes mellitus with other skin ulcer; L97.812 Non-pressure chronic ulcer of other part of right lower leg with fat layer exposed; I10 Essential (primary) hypertension; I89.0 Lymphedema, not elsewhere classified; F17.200 Nicotine dependence, unspecified, uncomplicated; Z79.84 Long term (current) use of oral hypoglycemic drugs
CPT/HCPCS: 97605; 97607

== ENCOUNTER 2020-06-03 11:00 | Outpatient (CLI) | payer OTHER ==
[2020-06-03] MEDS ORDERED: LIDOCAINE (4%) 40 MG/ML TOPICAL SOLN 50 ML BOTTLE TP ONE (11:02)
== END 2020-06-03 11:01 | disposition home or self-care (01) ==
LOC: WOUND 11:00
PROVIDERS: ATTEND Surgery
DX: I87.311 Chronic venous hypertension (idiopathic) with ulcer of right lower extremity (principal); E11.622 Type 2 diabetes mellitus with other skin ulcer; L97.812 Non-pressure chronic ulcer of other part of right lower leg with fat layer exposed; I10 Essential (primary) hypertension; I89.0 Lymphedema, not elsewhere classified; F17.200 Nicotine dependence, unspecified, uncomplicated; Z79.84 Long term (current) use of oral hypoglycemic drugs

== ENCOUNTER 2020-06-10 11:09 | Outpatient (CLI) | payer OTHER ==
[2020-06-10] MEDS ORDERED: LIDOCAINE (4%) 40 MG/ML TOPICAL SOLN 50 ML BOTTLE TP ONE (11:20)
== END 2020-06-10 11:10 | disposition home or self-care (01) ==
LOC: WOUND 11:09
PROVIDERS: ATTEND Surgery
DX: I87.311 Chronic venous hypertension (idiopathic) with ulcer of right lower extremity (principal); E11.622 Type 2 diabetes mellitus with other skin ulcer; L97.812 Non-pressure chronic ulcer of other part of right lower leg with fat layer exposed; I10 Essential (primary) hypertension; I89.0 Lymphedema, not elsewhere classified; F17.200 Nicotine dependence, unspecified, uncomplicated; Z79.84 Long term (current) use of oral hypoglycemic drugs

== ENCOUNTER 2020-06-17 10:32 | Outpatient (CLI) | payer OTHER ==
[2020-06-17] MEDS ORDERED: LIDOCAINE (4%) 40 MG/ML TOPICAL SOLN 50 ML BOTTLE TP ONE (10:40)
== END 2020-06-17 10:33 | disposition home or self-care (01) ==
LOC: WOUND 10:32
PROVIDERS: ATTEND Surgery
DX: I87.311 Chronic venous hypertension (idiopathic) with ulcer of right lower extremity (principal); E11.622 Type 2 diabetes mellitus with other skin ulcer; L97.812 Non-pressure chronic ulcer of other part of right lower leg with fat layer exposed; I10 Essential (primary) hypertension; I89.0 Lymphedema, not elsewhere classified; F17.200 Nicotine dependence, unspecified, uncomplicated; Z79.84 Long term (current) use of oral hypoglycemic drugs

== ENCOUNTER 2020-06-24 10:36 | Outpatient (CLI) | payer OTHER ==
[~2020-06-24 10:36] MED LIST changes: -LEXISCAN IV ONE; +LIDOCAINE (4%) 40 MG/ML TOPICAL SOLN 50 ML BOTTLE TP ONE; -PROTONIX PO ONE
== END 2020-06-24 10:37 | disposition home or self-care (01) ==
LOC: WOUND 10:36
PROVIDERS: ATTEND Surgery
DX: I87.311 Chronic venous hypertension (idiopathic) with ulcer of right lower extremity (principal); E11.622 Type 2 diabetes mellitus with other skin ulcer; L97.812 Non-pressure chronic ulcer of other part of right lower leg with fat layer exposed; I10 Essential (primary) hypertension; I89.0 Lymphedema, not elsewhere classified; F17.200 Nicotine dependence, unspecified, uncomplicated; Z79.84 Long term (current) use of oral hypoglycemic drugs

== ENCOUNTER 2020-07-01 10:36 | Outpatient (CLI) | payer OTHER ==
[2020-07-01] MEDS ORDERED: LIDOCAINE (4%) 40 MG/ML TOPICAL SOLN 50 ML BOTTLE TP ONE (10:41)
== END 2020-07-01 10:37 | disposition home or self-care (01) ==
LOC: WOUND 10:36
PROVIDERS: ATTEND Surgery
DX: I87.311 Chronic venous hypertension (idiopathic) with ulcer of right lower extremity (principal); E11.622 Type 2 diabetes mellitus with other skin ulcer; L97.812 Non-pressure chronic ulcer of other part of right lower leg with fat layer exposed; I10 Essential (primary) hypertension; I89.0 Lymphedema, not elsewhere classified; F17.200 Nicotine dependence, unspecified, uncomplicated; Z79.84 Long term (current) use of oral hypoglycemic drugs

== ENCOUNTER 2020-07-15 10:35 | Outpatient (CLI) | payer OTHER ==
[2020-07-15] MEDS ORDERED: LIDOCAINE (4%) 40 MG/ML TOPICAL SOLN 50 ML BOTTLE TP ONE (10:38)
== END 2020-07-15 10:36 | disposition home or self-care (01) ==
LOC: WOUND 10:35
PROVIDERS: ATTEND Surgery
DX: I87.311 Chronic venous hypertension (idiopathic) with ulcer of right lower extremity (principal); E11.622 Type 2 diabetes mellitus with other skin ulcer; L97.812 Non-pressure chronic ulcer of other part of right lower leg with fat layer exposed; I10 Essential (primary) hypertension; I89.0 Lymphedema, not elsewhere classified; F17.200 Nicotine dependence, unspecified, uncomplicated; Z79.84 Long term (current) use of oral hypoglycemic drugs

== ENCOUNTER 2020-08-05 10:32 | Outpatient (CLI) | payer OTHER | END 2020-08-05 10:33 | disposition home or self-care (01) | LOC: WOUND 10:32 | PROVIDERS: ATTEND Surgery | DX: I87.311 Chronic venous hypertension (idiopathic) with ulcer of right lower extremity (principal); E11.622 Type 2 diabetes mellitus with other skin ulcer; L97.812 Non-pressure chronic ulcer of other part of right lower leg with fat layer exposed; I89.0 Lymphedema, not elsewhere classified; F17.200 Nicotine dependence, unspecified, uncomplicated; Z79.84 Long term (current) use of oral hypoglycemic drugs | CPT/HCPCS: 99214; G0463 ==

== ENCOUNTER 2020-09-27 11:04 | Day surgery (SDC) | payer OTHER ==
[2020-09-24 09:51] LABS: Hemoglobin 10.7 gm/dl (10.1-14.3); Mean Corpuscular HGB Conc 35 % (30-34); Mean Corpuscular Volume 81 fl (79-97); Platelet Count 339 K/mm3 (140-440); Red Blood Count 3.81 M/mm3 (3.65-5.03); Red Cell Distribution Width 16.8 % (13.2-15.2)
[2020-09-24 10:04] LABS: BUN/Creatinine Ratio 10; Blood Urea Nitrogen 12 mg/dL (7-17); Calcium 9.1 mg/dL (8.4-10.2); Hemolysis Index 0
[~2020-09-27 11:04] MED LIST changes: -LIDOCAINE (4%) 40 MG/ML TOPICAL SOLN 50 ML BOTTLE TP ONE; +ceFAZolin/STERILE WATER 2 GM/20 ML SYRINGE IV NR
--- NOTE | 2020-09-27 11:49 | Anesthesia Day of Surgery ---
Anesthesia Day of Surgery - Day of Surgery Patient Examined: Yes Patient H&P Reviewed: Yes Patient is NPO: Yes Beta Blockers: Yes
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
[2020-09-27] MEDS ORDERED: HYDROmorphone 1 MG/1 ML INJ IV PRN ×2 (12:27)
[2020-09-27] MEDS ORDERED: ONDANSETRON 4 MG/2 ML INJ IV PRN (12:27)
[2020-09-27] MEDS ORDERED: LACTATED RINGERS 1,000 ML IV SCH (12:30)
[2020-09-27] MEDS ORDERED: LIDOCAINE MPF (2%) 20 MG/1 ML VIAL 5 ML ONE (12:30)
[2020-09-27] MEDS: MIDAZOLAM 2 MG/2 ML INJ IV NR ×2 (12:36→14:40)
[2020-09-27] MEDS ORDERED: BUPIVACAINE/PF (0.5%) 5 MG/1 ML 30 ML VIAL INFILTRATI ONE ×2 (14:43→15:19)
[2020-09-27] MEDS ORDERED: LIDOCAINE (1%) 10 MG/1 ML VIAL 20 ML MDV ONE (14:43)
[2020-09-27] MEDS ORDERED: propofoL 200 MG/20 ML VIAL IV ONE ×4 (14:45→15:29)
[2020-09-27] MEDS ORDERED: fentaNYL 100 MCG/2 ML INJ ONE (14:45)
[2020-09-27] MEDS ORDERED: MIDAZOLAM 2 MG/2 ML INJ IV SCH (15:00)
[2020-09-27] MEDS ORDERED: SODIUM CHLORIDE 0.9% IRR 1,500 ML BOTTLE IR ONE (15:19)
[2020-09-27] MEDS ORDERED: LIDOCAINE (1%) 10 MG/1 ML VIAL 20 ML MDV INFILTRATI ONE (15:19)
--- NOTE | 2020-09-27 15:54 | Short Stay Summary ---
Short Stay Documentation Date of service: 09/27/20 - History Principal diagnosis: right leg chronic cyst H&P: obtained from office - Allergies and Medications Current Medications: Allergies No Known Allergies Allergy (Verified 09/20/20 12:36) Home Medications Medication Instructions Recorded Confirmed Last Taken Type Ergocalciferol [Vitamin D2] 50,000 unit PO QWEEK 07/25/18 09/20/20 09/26/20 History Loratadine 10 mg PO DAILY 07/25/18 09/20/20 09/26/20 History Omeprazole 40 mg PO DAILY 07/25/18 09/20/20 09/26/20 History amLODIPine 10 mg PO DAILY 07/25/18 09/20/20 09/26/20 History Metoprolol Xl [Metoprolol 50 mg PO DAILY 09/19/18 09/20/20 09/27/20 09:30 History SUCCINATE ER TAB] ALBUTEROL NEB's [Proventil 0.083% 2 puff IH TID PRN 05/08/20 09/20/20 2 Days Ago History NEBS] ~09/25/20 Chlorthalidone [Thalitone] 25 mg PO QDAY 05/08/20 09/20/20 09/26/20 History ISOSORBIDE MONOnitrate [Imdur ER] 30 mg PO DAILY 05/08/20 09/20/20 09/27/20 09:30 History metFORMIN [Glucophage] 500 mg PO BID 05/08/20 09/20/20 09/26/20 History Rosuvastatin Calcium [Crestor] 20 mg PO DAILY 08/23/20 09/20/20 09/26/20 History Ferrous Sulfate [Ferrous Sulfate 324 mg PO QDAY 09/20/20 09/20/20 09/26/20 History 324 MG] Ibuprofen [Motrin] 800 mg PO Q8HR PRN 09/20/20 09/20/20 09/26/20 History predniSONE [Deltasone] 10 mg PO PRN PRN 09/20/20 09/20/20 2 Days Ago History ~09/25/20 Active Medications Hydromorphone HCl (Hydromorphone 1 Mg/1 Ml Inj) 0.25 mg IV Q10MIN PRN PRN Reason: Pain, Moderate (4-6) Hydromorphone HCl (Hydromorphone 1 Mg/1 Ml Inj) 0.5 mg IV Q10MIN PRN PRN Reason: Pain , Severe (7-10) Stop: 09/27/20 23:28 Cefazolin Sodium 3 gm/ Sodium (Chloride) 100 mls @ 100 mls/30 min IV PREOP NR; Protocol Stop: 09/27/20 23:50 Lactated Ringer's (Lactated Ringers) 1,000 mls @ 125 mls/hr IV DIRECT TALAT Last Admin: 09/27/20 12:35 Dose: 125 mls/hr Documented by: Midazolam HCl (Midazolam 2 Mg/2 Ml Inj) 2 mg IV PREOP NR Stop: 09/27/20 23:59 Last Admin: 09/27/20 14:40 Dose: 2 mg Documented by: Midazolam HCl (Midazolam 2 Mg/2 Ml Inj) 2 mg IV ONCE TALAT Stop: 09/27/20 20:00 Ondansetron HCl (Ondansetron 4 Mg/2 Ml Inj) 4 mg IV ONCE PRN PRN Reason: Nausea And Vomiting - Brief post op/procedure progress note Date of procedure: 09/27/20 Pre-op diagnosis: cyst of right leg Post-op diagnosis: same Procedure: exicison of cyst of right leg Anesthesia: MAC, local Findings: 2, 1cm cysts adjacent to one another. Both cysts excised and exhibited chronic inflammation. One with skin involvement. Surgeon: GERTRUDIS FIGUEROA Estimated blood loss: minimal Pathology: list (cysts of right leg) Specimen disposition: to lab Condition: stable - Hospital course Hospital course: Pt observed in PACU and discharged to home in stable condition when criteria met - Disposition Condition at discharge: Good Disposition: DC-01 TO HOME OR SELFCARE Short Stay Discharge Plan Activity: no restrictions Diet: regular Wound: per your surgeon's advice (Remove dressing and packing on Wednesday. Wash area with soap and water, pat dry. Pack with one piece of alginate. Cover with dry dressing. Do dressing changes every other day) Follow up with: FRANK GANDARA NP-C [Primary Care Provider] - 7 Days GERTRUDIS FIGUEROA DO [Staff Physician] - 10/07/20 8:30 am (At wound care center) Prescriptions: traMADoL [Ultram 50 MG tab] 50 mg PO Q4HR PRN #20 tablet PRN Reason: Pain
--- NOTE | 2020-09-27 17:03 | Operative Report ---
Operative Report Operative Report: Date of procedure: 09/27/20 Pre-op diagnosis: cyst of right leg Post-op diagnosis: same Procedure: excision of cyst of right leg Anesthesia: MAC, local Findings: 2, 1cm cysts adjacent to one another. Both cysts excised and exhibited chronic inflammation. One with skin involvement. Surgeon: GERTRUDIS FIGUEROA Estimated blood loss: minimal Pathology: list (cysts of right leg) Specimen disposition: to lab Condition: stable Hospital course: Pt observed in PACU and discharged to home in stable condition when criteria met HPI and indication: 40 yo F with hx of chronic wounds of RLE, b/l LE venous reflux and subcutaneous cysts who is being managed in the wound care center. Patient has had persistent drainage from a cyst of her right lower leg for the last 1year despite aggressive wound care. She has numerous cysts in this area but only this one is symptomatic. She has had prior excision of cyst of the right lower leg which opened and became a nonhealing wound. Recommendation was to excise the cyst in its entirety. Patient agreed and consent obtained. All risks, benefits, alternatives to surgery discussed. The possibility of wound remaining open was discussed. Procedure in detail: Pt identified in the preop area and surgical site marked. The patient was taken back to the operating room and placed on the operating room table in supine position. The right anterior lower leg was prepped and draped in sterile fashion and time out performed. Local anesthetic was infiltrated into the skin at the intended incision site. Using a 15 blade the skin around the wound was incised circumfrentially. The dissection was carried down through the skin and subcutaneous tissue until the cyst was encountered. The wall was chronically thickened containing white fluid. This was dissected free from the surrounding tissue using electrocautery and excised from the wound along with the overlying skin. This measured 1 cm. There was adjacent inflamed tissue which was excised separately, also measuring approximately 1 cm. The underlying subcutaneous tissue was normal without inflammation. There were 2 small calcified blood vessels in the dermis with bleeding which was controlled with figure of 8 stitches using 2-0vicyl. The wound was irrigated and hemostasis ensured. The edges of the wound was approximated using 3-0 nylon simple interrupted stitches. The open portion of the wound was packed with 1 piece saline moistened fluff gauze. The wound was covered with 4x4 gauze, ABD pad and wrapped with kerlix. At the end of the case, all sponge, instrument, sharp counts were correct x 2. The patient was awoken from anesthesia and taken to PACU in stable condition. A follow up appointment was scheduled.
[2020-09-27 19:01] VITALS: BP 114/90
== END 2020-09-27 11:05 | disposition home or self-care (01) ==
LOC: OR 11:04
PROVIDERS: ATTEND Surgery
DX: R22.42 Localized swelling, mass and lump, left lower limb (principal); L98.498 Non-pressure chronic ulcer of skin of other sites with other specified severity; L08.9 Local infection of the skin and subcutaneous tissue, unspecified; I10 Essential (primary) hypertension; E11.69 Type 2 diabetes mellitus with other specified complication; I20.8 Other forms of angina pectoris; E78.00 Pure hypercholesterolemia, unspecified; J45.909 Unspecified asthma, uncomplicated; G47.30 Sleep apnea, unspecified; K21.9 Gastro-esophageal reflux disease without esophagitis; E66.9 Obesity, unspecified; M19.90 Unspecified osteoarthritis, unspecified site; F17.210 Nicotine dependence, cigarettes, uncomplicated; Z79.899 Other long term (current) drug therapy; Z79.84 Long term (current) use of oral hypoglycemic drugs; Z98.890 Other specified postprocedural states; Z68.42 Body mass index [BMI] 45.0-49.9, adult; Z83.3 Family history of diabetes mellitus; Z82.49 Family history of ischemic heart disease and other diseases of the circulatory system
CPT/HCPCS: 11401; 36415; 80048; 82962; 84703; 85027; 88304; J0690; J2250; J2704; J3010; J7120; 88305; 88312

== ENCOUNTER 2020-10-07 10:00 | Outpatient (CLI) | payer OTHER ==
[2020-10-07] MEDS ORDERED: LIDOCAINE (4%) 40 MG/ML TOPICAL SOLN 50 ML BOTTLE TP ONE (10:03)
== END 2020-10-07 10:01 | disposition home or self-care (01) ==
LOC: WOUND 10:00
PROVIDERS: ATTEND Surgery
DX: I87.311 Chronic venous hypertension (idiopathic) with ulcer of right lower extremity (principal); E11.622 Type 2 diabetes mellitus with other skin ulcer; L97.812 Non-pressure chronic ulcer of other part of right lower leg with fat layer exposed; I89.0 Lymphedema, not elsewhere classified; F17.200 Nicotine dependence, unspecified, uncomplicated; Z79.84 Long term (current) use of oral hypoglycemic drugs

== ENCOUNTER 2020-10-21 10:35 | Outpatient (CLI) | payer OTHER ==
[2020-10-21] MEDS ORDERED: LIDOCAINE (4%) 40 MG/ML TOPICAL SOLN 50 ML BOTTLE TP ONE (11:04)
== END 2020-10-21 10:36 | disposition home or self-care (01) ==
LOC: WOUND 10:35
PROVIDERS: ATTEND Surgery
DX: I87.311 Chronic venous hypertension (idiopathic) with ulcer of right lower extremity (principal); E11.622 Type 2 diabetes mellitus with other skin ulcer; L97.812 Non-pressure chronic ulcer of other part of right lower leg with fat layer exposed; I89.0 Lymphedema, not elsewhere classified; I25.2 Old myocardial infarction; F17.200 Nicotine dependence, unspecified, uncomplicated; Z79.84 Long term (current) use of oral hypoglycemic drugs

== ENCOUNTER 2020-11-11 09:38 | Outpatient (CLI) | payer OTHER ==
[2020-11-11] MEDS ORDERED: LIDOCAINE (4%) 40 MG/ML TOPICAL SOLN 50 ML BOTTLE TP ONE (09:53)
== END 2020-11-11 09:39 | disposition home or self-care (01) ==
LOC: WOUND 09:38
PROVIDERS: ATTEND Surgery
DX: I87.311 Chronic venous hypertension (idiopathic) with ulcer of right lower extremity (principal); E11.622 Type 2 diabetes mellitus with other skin ulcer; L97.812 Non-pressure chronic ulcer of other part of right lower leg with fat layer exposed; I89.0 Lymphedema, not elsewhere classified; I25.2 Old myocardial infarction; F17.200 Nicotine dependence, unspecified, uncomplicated; Z79.84 Long term (current) use of oral hypoglycemic drugs

== ENCOUNTER 2020-12-02 09:43 | Outpatient (CLI) | payer OTHER ==
[2020-12-02] MEDS ORDERED: LIDOCAINE (4%) 40 MG/ML TOPICAL SOLN 50 ML BOTTLE TP ONE (10:41)
== END 2020-12-02 09:44 | disposition home or self-care (01) ==
LOC: WOUND 09:43
PROVIDERS: ATTEND Surgery
DX: I87.313 Chronic venous hypertension (idiopathic) with ulcer of bilateral lower extremity (principal); E11.622 Type 2 diabetes mellitus with other skin ulcer; L97.812 Non-pressure chronic ulcer of other part of right lower leg with fat layer exposed; L97.821 Non-pressure chronic ulcer of other part of left lower leg limited to breakdown of skin; I89.0 Lymphedema, not elsewhere classified; I25.2 Old myocardial infarction; F17.200 Nicotine dependence, unspecified, uncomplicated; Z79.84 Long term (current) use of oral hypoglycemic drugs

== ENCOUNTER 2020-12-17 06:15 | Day surgery (SDC) | payer OTHER ==
[2020-12-17] MEDS ORDERED: MIDAZOLAM 2 MG/2 ML INJ IV ONE (07:39)
[2020-12-17] MEDS ORDERED: LACTATED RINGERS 1,000 ML IV SCH (07:45)
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
--- NOTE | 2020-12-17 08:03 | Anesthesia Day of Surgery ---
Anesthesia Day of Surgery - Day of Surgery Patient Examined: Yes Patient H&P Reviewed: Yes Patient is NPO: Yes Beta Blockers: Yes
[2020-12-17] MEDS ORDERED: ONDANSETRON 4 MG/2 ML INJ ONE (08:09)
[2020-12-17] MEDS ORDERED: FAMOTIDINE 20 MG/2 ML INJ IV ONE (08:10)
[2020-12-17] MEDS ORDERED: FAMOTIDINE 20 MG/2 ML INJ IV NR (08:12)
[2020-12-17] MEDS ORDERED: ONDANSETRON 4 MG/2 ML INJ IV NR (08:12)
[2020-12-17] MEDS ORDERED: propofoL 200 MG/20 ML VIAL IV ONE ×6 (08:30→09:39)
[2020-12-17] MEDS ORDERED: fentaNYL 100 MCG/2 ML INJ ONE (08:30)
[2020-12-17] MEDS ORDERED: BUPIVACAINE-EPINEPHRINE/PF 0.25%-1:200,000 (30 ML) VIAL INFILTRATI ONE (09:07)
[2020-12-17] MEDS ORDERED: LIDOCAINE (1%) 10 MG/1 ML VIAL 20 ML MDV ONE (09:07)
[2020-12-17] MEDS ORDERED: KETAMINE/STERILE WATER 50 MG/ML SYRINGE ONE (09:19)
[2020-12-17] MEDS ORDERED: LIDOCAINE (1%) 10 MG/1 ML VIAL 20 ML MDV INFILTRATI ONE (10:00)
[2020-12-17] MEDS ORDERED: SODIUM CHLORIDE 0.9% IRR 1,500 ML BOTTLE IR ONE (10:00)
[2020-12-17] MEDS ORDERED: BUPIVACAINE/PF (0.25%) 2.5 MG/ML 30 ML VIAL INFILTRATI ONE (10:00)
--- NOTE | 2020-12-17 10:11 | Short Stay Summary ---
Short Stay Documentation Date of service: 12/17/20 - History Principal diagnosis: cyst of left leg H&P: obtained from office - Allergies and Medications Current Medications: Allergies No Known Allergies Allergy (Verified 09/20/20 12:36) Home Medications Medication Instructions Recorded Confirmed Last Taken Type Ergocalciferol [Vitamin D2] 50,000 unit PO QWEEK 07/25/18 12/13/20 12/16/20 History Loratadine 10 mg PO DAILY 07/25/18 12/13/20 12/16/20 History Omeprazole 40 mg PO DAILY 07/25/18 12/13/20 12/16/20 History amLODIPine 10 mg PO DAILY 07/25/18 12/13/20 12/17/20 05:00 History Metoprolol Xl [Metoprolol 50 mg PO DAILY 09/19/18 12/13/20 12/17/20 05:00 History SUCCINATE ER TAB] Chlorthalidone [Thalitone] 25 mg PO QDAY 05/08/20 12/13/20 12/16/20 History ISOSORBIDE MONOnitrate [Imdur ER] 30 mg PO DAILY 05/08/20 12/13/20 12/17/20 05:00 History metFORMIN [Glucophage] 500 mg PO BID 05/08/20 12/13/20 12/16/20 History Rosuvastatin Calcium [Crestor] 20 mg PO DAILY 08/23/20 12/13/20 12/16/20 History Ferrous Sulfate [Ferrous Sulfate 324 mg PO QDAY 09/20/20 12/13/20 12/16/20 History 324 MG] Ibuprofen [Motrin 800 MG tab] 800 mg PO PRN PRN 09/20/20 12/13/20 09/26/20 History predniSONE 20 mg PO BID 09/20/20 12/13/20 12/16/20 History Albuterol Sulfate [Proventil Hfa] 2 puff IH PRN PRN 12/13/20 12/13/20 12/17/20 09:16 History Active Medications Cefazolin Sodium 3 gm/ Sodium (Chloride) 100 mls @ 100 mls/30 min IV PREOP NR; Protocol Stop: 12/17/20 12:00 Lactated Ringer's (Lactated Ringers) 1,000 mls @ 75 mls/hr IV DIRECT TALAT Last Admin: 12/17/20 08:05 Dose: 75 mls/hr Documented by: - Brief post op/procedure progress note Date of procedure: 12/17/20 Pre-op diagnosis: chronic cyst of left leg Post-op diagnosis: other (acute on chronic cyst of left leg) Procedure: excision of left leg cystic lesion Anesthesia: MAC, local Findings: 4cm acutely inflamed chronic cyst of left leg with maceration of skin and multiple open sinus of skin Surgeon: GERTRUDIS FIGUEROA Estimated blood loss: minimal Pathology: list (cyst of left leg) Specimen disposition: to lab Condition: stable - Hospital course Hospital course: Pt observed in PACU and discharged to home in stable condition when criteria met - Disposition Condition at discharge: Good Disposition: [id number] TO HOME OR SELFCARE Short Stay Discharge Plan Activity: no restrictions Diet: regular Wound: per your surgeon's advice (Remove packing from wound tomorrow. Cleanse wound and repack with one piece of alginate. Cover with dry dressing. Perform dressing changes every other day) Additional Instructions: Follow up in wound care clinic on 12/23/20 @ 2pm Follow up with: FRANK GANDARA NP-C [Primary Care Provider] - 7 Days GERTRUDIS FIGUEROA DO [Staff Physician] - 7 Days Prescriptions: traMADoL [Ultram 50 MG tab] 50 mg PO Q6HR PRN #20 tablet PRN Reason: Pain , Severe (7-10)
--- NOTE | 2020-12-17 10:39 | Operative Report ---
Operative Report Operative Report: Date of procedure: 12/17/20 Pre-op diagnosis: chronic cyst of left leg Post-op diagnosis: other (acute on chronic cyst of left leg) Procedure: excision of left leg cystic lesion Anesthesia: MAC, local Findings: 4cm acutely inflamed chronic cyst of left leg with maceration of skin and multiple open sinus of skin Surgeon: GERTRUDIS FIGUEROA Estimated blood loss: minimal Pathology: list (cyst of left leg) Specimen disposition: to lab Condition: stable - Hospital course Hospital course: Pt observed in PACU and discharged to home in stable condition when criteria met HPI and indication: Patient is a 40-year-old female with history of multiple subcutaneous cysts of the lower extremities. Patient currently has a chronic cyst of her left anterior lower leg with acute on chronic inflammation and multiple open sinuses to the skin. Patient is seen in the wound care center and it was recommended that this cyst to be excised. All risk, benefits, alternatives of surgery surgery were discussed with the patient. Patient was informed that she would have an open wound for which she would have to continue to follow-up in the wound care center. All questions answered and consent obtained. Procedure in detail: Pt identified in the preop area and surgical site marked. The patient was taken back to the operating room and placed on the operating room table in supine position. The left anterior lower leg was prepped and draped in sterile fashion and time out performed. Local anesthetic was infiltrated into the skin at the intended incision site. Using a 10 blade the wide local excision of the wound was performed. The dissection was carried down through the skin and subcutaneous tissue using electrocautery and the inflamed tissue/cyst was excised. There was evidence of acute on chronic inflammation of the cyst. There are multiple open site is skin. Subcutaneous flap was raised and the superior most and inferior most edges of the wound was approximated using 3-0 nylon vertical mattress stitch. The wound was irrigated and hemostasis ensured. The open portion of the wound was packed with 1 piece saline moistened fluff gauze. The wound was covered with 4x4 gauze and Medipore tape. The patient tolerated procedure well. At the end of the case, all sponge, instrument, sharp counts were correct x 2. The patient was awoken from anesthesia and taken to PACU in stable condition. A follow up appointment was scheduled.
[2020-12-17 20:38] VITALS: BP 122/78
== END 2020-12-17 06:16 | disposition home or self-care (01) ==
LOC: OR 06:15
PROVIDERS: ATTEND Surgery
DX: R22.42 Localized swelling, mass and lump, left lower limb (principal); M79.89 Other specified soft tissue disorders; F17.210 Nicotine dependence, cigarettes, uncomplicated; E11.9 Type 2 diabetes mellitus without complications; E66.2 Morbid (severe) obesity with alveolar hypoventilation; I11.0 Hypertensive heart disease with heart failure; I50.9 Heart failure, unspecified; E78.00 Pure hypercholesterolemia, unspecified; J45.909 Unspecified asthma, uncomplicated; I25.119 Atherosclerotic heart disease of native coronary artery with unspecified angina pectoris; K21.9 Gastro-esophageal reflux disease without esophagitis; M06.9 Rheumatoid arthritis, unspecified; F31.9 Bipolar disorder, unspecified; F41.9 Anxiety disorder, unspecified; D64.9 Anemia, unspecified; Z98.890 Other specified postprocedural states; Z79.899 Other long term (current) drug therapy; Z79.84 Long term (current) use of oral hypoglycemic drugs; Z68.42 Body mass index [BMI] 45.0-49.9, adult; Z98.51 Tubal ligation status; Z98.891 History of uterine scar from previous surgery; Z83.3 Family history of diabetes mellitus; Z82.49 Family history of ischemic heart disease and other diseases of the circulatory system
CPT/HCPCS: 11404; 81025; 82962; 88305; J0690; J2250; J2405; J2704; J3010; J3490; J7120; 88304

== ENCOUNTER 2020-12-30 09:40 | Outpatient (CLI) | payer OTHER ==
[2020-12-30] MEDS ORDERED: LIDOCAINE (4%) 40 MG/ML TOPICAL SOLN 50 ML BOTTLE TP ONE (09:58)
[2020-12-30] MEDS ORDERED: SODIUM HYPOCHLORITE, DAKIN'S 1/2 STRENGTH (0.25%) 473 ML TOPICAL SOLN TP ONE (11:00)
== END 2020-12-30 09:41 | disposition home or self-care (01) ==
LOC: WOUND 09:40
PROVIDERS: ATTEND Surgery
DX: I87.313 Chronic venous hypertension (idiopathic) with ulcer of bilateral lower extremity (principal); E11.622 Type 2 diabetes mellitus with other skin ulcer; L97.812 Non-pressure chronic ulcer of other part of right lower leg with fat layer exposed; L97.821 Non-pressure chronic ulcer of other part of left lower leg limited to breakdown of skin; I89.0 Lymphedema, not elsewhere classified; I25.2 Old myocardial infarction; F17.200 Nicotine dependence, unspecified, uncomplicated; Z79.84 Long term (current) use of oral hypoglycemic drugs
CPT/HCPCS: 11042; 87076; 87116; 87186; A6260

== ENCOUNTER 2021-01-06 11:37 | Outpatient (CLI) | payer OTHER ==
[2021-01-06] MEDS ORDERED: LIDOCAINE (4%) 40 MG/ML TOPICAL SOLN 50 ML BOTTLE TP ONE (13:47)
== END 2021-01-06 11:38 | disposition home or self-care (01) ==
LOC: WOUND 11:37
PROVIDERS: ATTEND Surgery
DX: I87.313 Chronic venous hypertension (idiopathic) with ulcer of bilateral lower extremity (principal); E11.622 Type 2 diabetes mellitus with other skin ulcer; L97.812 Non-pressure chronic ulcer of other part of right lower leg with fat layer exposed; L97.821 Non-pressure chronic ulcer of other part of left lower leg limited to breakdown of skin; I89.0 Lymphedema, not elsewhere classified; I25.2 Old myocardial infarction; F17.200 Nicotine dependence, unspecified, uncomplicated; Z79.84 Long term (current) use of oral hypoglycemic drugs

== ENCOUNTER 2021-01-20 13:12 | Outpatient (CLI) | payer OTHER ==
[2021-01-20] MEDS ORDERED: LIDOCAINE (4%) 40 MG/ML TOPICAL SOLN 50 ML BOTTLE TP ONE (13:15)
== END 2021-01-20 13:13 | disposition home or self-care (01) ==
LOC: WOUND 13:12
PROVIDERS: ATTEND Surgery
DX: I87.313 Chronic venous hypertension (idiopathic) with ulcer of bilateral lower extremity (principal); E11.622 Type 2 diabetes mellitus with other skin ulcer; L97.812 Non-pressure chronic ulcer of other part of right lower leg with fat layer exposed; L97.821 Non-pressure chronic ulcer of other part of left lower leg limited to breakdown of skin; I89.0 Lymphedema, not elsewhere classified; I25.2 Old myocardial infarction; F17.200 Nicotine dependence, unspecified, uncomplicated; Z79.84 Long term (current) use of oral hypoglycemic drugs

== ENCOUNTER 2021-02-03 11:42 | Outpatient (CLI) | payer OTHER ==
[2021-02-03] MEDS ORDERED: LIDOCAINE (4%) 40 MG/ML TOPICAL SOLN 50 ML BOTTLE TP ONE (11:47)
== END 2021-02-03 11:43 | disposition home or self-care (01) ==
LOC: WOUND 11:42
PROVIDERS: ATTEND Surgery
DX: I87.313 Chronic venous hypertension (idiopathic) with ulcer of bilateral lower extremity (principal); E11.622 Type 2 diabetes mellitus with other skin ulcer; L97.812 Non-pressure chronic ulcer of other part of right lower leg with fat layer exposed; L97.821 Non-pressure chronic ulcer of other part of left lower leg limited to breakdown of skin; I89.0 Lymphedema, not elsewhere classified; I25.2 Old myocardial infarction; F17.200 Nicotine dependence, unspecified, uncomplicated; Z79.84 Long term (current) use of oral hypoglycemic drugs

== ENCOUNTER 2021-02-17 09:21 | Outpatient (CLI) | payer OTHER ==
[2021-02-17] MEDS ORDERED: LIDOCAINE (4%) 40 MG/ML TOPICAL SOLN 50 ML BOTTLE TP ONE ×2 (11:37→19:00)
== END 2021-02-17 09:22 | disposition home or self-care (01) ==
LOC: WOUND 09:21
PROVIDERS: ATTEND Surgery
DX: E11.622 Type 2 diabetes mellitus with other skin ulcer (principal); I87.333 Chronic venous hypertension (idiopathic) with ulcer and inflammation of bilateral lower extremity; L97.822 Non-pressure chronic ulcer of other part of left lower leg with fat layer exposed; L97.811 Non-pressure chronic ulcer of other part of right lower leg limited to breakdown of skin; I89.0 Lymphedema, not elsewhere classified; I25.2 Old myocardial infarction; F17.200 Nicotine dependence, unspecified, uncomplicated; Z79.84 Long term (current) use of oral hypoglycemic drugs

== ENCOUNTER 2021-03-03 09:39 | Outpatient (CLI) | payer OTHER ==
[2021-03-03] MEDS ORDERED: LIDOCAINE (4%) 40 MG/ML TOPICAL SOLN 50 ML BOTTLE TP ONE (10:06)
== END 2021-03-03 09:40 | disposition home or self-care (01) ==
LOC: WOUND 09:39
PROVIDERS: ATTEND Surgery
DX: E11.622 Type 2 diabetes mellitus with other skin ulcer (principal); I87.333 Chronic venous hypertension (idiopathic) with ulcer and inflammation of bilateral lower extremity; L97.822 Non-pressure chronic ulcer of other part of left lower leg with fat layer exposed; L97.811 Non-pressure chronic ulcer of other part of right lower leg limited to breakdown of skin; I89.0 Lymphedema, not elsewhere classified; I25.2 Old myocardial infarction; F17.200 Nicotine dependence, unspecified, uncomplicated; Z79.84 Long term (current) use of oral hypoglycemic drugs; Z86.73 Personal history of transient ischemic attack (TIA), and cerebral infarction without residual deficits

== ENCOUNTER 2021-03-31 09:44 | Outpatient (CLI) | payer OTHER ==
[2021-03-31] MEDS ORDERED: LIDOCAINE (4%) 40 MG/ML TOPICAL SOLN 50 ML BOTTLE TP SCH (10:00)
== END 2021-03-31 09:45 | disposition home or self-care (01) ==
LOC: WOUND 09:44
PROVIDERS: ATTEND Surgery
DX: I87.333 Chronic venous hypertension (idiopathic) with ulcer and inflammation of bilateral lower extremity (principal); E11.622 Type 2 diabetes mellitus with other skin ulcer; L97.822 Non-pressure chronic ulcer of other part of left lower leg with fat layer exposed; L97.811 Non-pressure chronic ulcer of other part of right lower leg limited to breakdown of skin; I89.0 Lymphedema, not elsewhere classified; I25.2 Old myocardial infarction; L84 Corns and callosities; F17.200 Nicotine dependence, unspecified, uncomplicated; Z79.84 Long term (current) use of oral hypoglycemic drugs; Z86.73 Personal history of transient ischemic attack (TIA), and cerebral infarction without residual deficits

== ENCOUNTER 2021-04-14 09:56 | Outpatient (CLI) | payer OTHER ==
[2021-04-14] MEDS ORDERED: LIDOCAINE (4%) 40 MG/ML TOPICAL SOLN 50 ML BOTTLE TP ONE (10:03)
== END 2021-04-14 09:57 | disposition home or self-care (01) ==
LOC: WOUND 09:56
PROVIDERS: ATTEND Surgery
DX: I87.333 Chronic venous hypertension (idiopathic) with ulcer and inflammation of bilateral lower extremity (principal); E11.622 Type 2 diabetes mellitus with other skin ulcer; L97.822 Non-pressure chronic ulcer of other part of left lower leg with fat layer exposed; L97.811 Non-pressure chronic ulcer of other part of right lower leg limited to breakdown of skin; I89.0 Lymphedema, not elsewhere classified; I25.2 Old myocardial infarction; L84 Corns and callosities; F17.200 Nicotine dependence, unspecified, uncomplicated; Z79.84 Long term (current) use of oral hypoglycemic drugs; Z86.73 Personal history of transient ischemic attack (TIA), and cerebral infarction without residual deficits
CPT/HCPCS: 99214; G0463

== ENCOUNTER 2021-07-21 09:58 | Outpatient (CLI) | payer OTHER ==
[2021-07-21] MEDS ORDERED: LIDOCAINE (4%) 40 MG/ML TOPICAL SOLN 50 ML BOTTLE TP ONE (10:16)
== END 2021-07-21 09:59 | disposition home or self-care (01) ==
LOC: WOUND 09:58
PROVIDERS: ATTEND Surgery
DX: S81.801A Unspecified open wound, right lower leg, initial encounter (principal); L72.8 Other follicular cysts of the skin and subcutaneous tissue; I87.2 Venous insufficiency (chronic) (peripheral); K21.9 Gastro-esophageal reflux disease without esophagitis; J42 Unspecified chronic bronchitis; E11.9 Type 2 diabetes mellitus without complications; I10 Essential (primary) hypertension; I89.0 Lymphedema, not elsewhere classified; F17.290 Nicotine dependence, other tobacco product, uncomplicated; Z98.84 Bariatric surgery status; Z79.84 Long term (current) use of oral hypoglycemic drugs; Z79.899 Other long term (current) drug therapy; X58.XXXA Exposure to other specified factors, initial encounter; Y93.89 Activity, other specified; Y92.89 Other specified places as the place of occurrence of the external cause; Y99.8 Other external cause status
CPT/HCPCS: 99214; G0463

== ENCOUNTER 2021-08-22 07:43 | Day surgery (SDC) | payer OTHER ==
[2021-08-22] MEDS ORDERED: ceFAZolin/STERILE WATER 2 GM/20 ML SYRINGE IV NR (08:00)
[2021-08-22] MEDS ORDERED: BACTERIOSTATIC SODIUM CHLORIDE 0.9% 30 ML VIAL INFILTRATI ONE (08:28)
[2021-08-22] MEDS ORDERED: LACTATED RINGERS 1,000 ML IV SCH (08:30)
[2021-08-22] MEDS ORDERED: HYDROmorphone 1 MG/1 ML INJ IV PRN ×2 (09:13)
[2021-08-22] MEDS ORDERED: ONDANSETRON 4 MG/2 ML INJ IV PRN (09:13)
--- NOTE | 2021-08-22 09:14 | Anesthesia Day of Surgery ---
Anesthesia Day of Surgery - Day of Surgery Patient Examined: Yes Patient H&P Reviewed: Yes Patient is NPO: Yes
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
[2021-08-22 09:17] LABS: Hematocrit 33.2 % (30.3-42.9); Hemoglobin 10.8 gm/dl (10.1-14.3); Mean Corpuscular HGB Conc 33 % (30-34); Mean Corpuscular Volume 80 fl (79-97); Platelet Count 353 K/mm3 (140-440); Red Blood Count 4.17 M/mm3 (3.65-5.03); Red Cell Distribution Width 16.1 % (13.2-15.2)
[2021-08-22 09:38] LABS: BUN/Creatinine Ratio 13; Blood Urea Nitrogen 15 mg/dL (7-17); Calcium 9.5 mg/dL (8.4-10.2); Hemolysis Index 3
[2021-08-22] MEDS ORDERED: LIDOCAINE (1%) 10 MG/1 ML VIAL 20 ML MDV ONE (09:55)
[2021-08-22] MEDS ORDERED: BUPIVACAINE/PF (0.25%) 2.5 MG/ML 30 ML VIAL INFILTRATI ONE ×2 (09:55→10:32)
[2021-08-22] MEDS ORDERED: MIDAZOLAM 2 MG/2 ML INJ IV NR (10:00)
[2021-08-22] MEDS ORDERED: MIDAZOLAM 2 MG/2 ML INJ ONE (10:09)
[2021-08-22] MEDS ORDERED: propofoL 200 MG/20 ML VIAL IV ONE ×3 (10:17→10:47)
[2021-08-22] MEDS ORDERED: KETAMINE/STERILE WATER 50 MG/ML SYRINGE ONE (10:19)
[2021-08-22] MEDS ORDERED: SODIUM CHLORIDE 0.9% IRR 1,500 ML BOTTLE IR ONE (10:32)
[2021-08-22] MEDS ORDERED: LIDOCAINE (1%) 10 MG/1 ML VIAL 20 ML MDV INFILTRATI ONE (10:32)
--- NOTE | 2021-08-22 11:15 | Operative Report ---
Operative Report Operative Report: Date of procedure: 08/22/21 Pre-op diagnosis: chronic draining cyst of right leg Post-op diagnosis: same as above Procedure: excision of right leg cystic lesion Anesthesia: MAC, local Findings: 4cm chronically inflamed cyst of right leg with small opening in skin and scant clear drainage Surgeon: GERTRUDIS FIGUEROA Estimated blood loss: minimal Pathology: list (mass of right leg) Specimen disposition: to lab Condition: stable Hospital course: Pt observed in PACU and discharged to home in stable condition when criteria met HPI and indication: Patient is a 41-year-old female with history of multiple subcutaneous cysts of the lower extremities. Patient currently has a chronic cyst of her right anterior lower leg with drainage. On initial visit last month this was infected and she was prescribed abx with resolution of infection but continuous drainage. Patient is seen in the office and it was recommended that this cyst to be excised. All risk, benefits, alternatives of surgery surgery were discussed with the patient. Patient was informed that she could have an open wound for which she would have to continue to follow-up in the wound care center. All questions answered and consent obtained. Procedure in detail: Pt identified in the preop area and surgical site marked. The patient was taken back to the operating room and placed on the operating room table in supine position. The right anterior lower leg was prepped and draped in sterile fashion and time out performed. Local anesthetic was infiltrated into the skin at the intended incision site. Using a 15 blade a wide local excision of the involved skin was performed. The dissection was carried down through the skin and subcutaneous tissue using electrocautery and the inflamed tissue/cyst was excised. It measured approximately 4cm. There was evidence of chronic inflammation of the cyst. The wound was irrigated and hemostasis ensured. Subcutaneous flap was raised and the skin was approximated using 2-0 nylon vertical mattress and interrupted stitches. Two pieces of telfa were placed in between the incision. The wound was covered with 4x4 gauze and secured with kerlex. Patient's compression stocking was applied. The patient tolerated procedure well. At the end of the case, all sponge, instrument, sharp counts were correct x 2. The patient was awoken from anesthesia and taken to PACU in stable condition.
--- NOTE | 2021-08-22 11:21 | Short Stay Summary ---
Short Stay Documentation Date of service: 08/22/21 - Allergies and Medications Current Medications: Allergies No Known Allergies Allergy (Verified 09/20/20 12:36) Home Medications Medication Instructions Recorded Confirmed Last Taken Type Ergocalciferol [Vitamin D2] 50,000 unit PO QWEEK 07/25/18 08/14/21 08/21/21 History Loratadine 10 mg PO DAILY 07/25/18 08/14/21 08/22/21 05:45 History Omeprazole 40 mg PO DAILY 07/25/18 08/14/21 08/21/21 History amLODIPine 10 mg PO DAILY 07/25/18 08/14/21 08/21/21 History Metoprolol Xl [Metoprolol 50 mg PO DAILY 09/19/18 08/14/21 08/22/21 05:45 History SUCCINATE ER TAB] Chlorthalidone [Thalitone] 25 mg PO QDAY 05/08/20 08/14/21 08/22/21 05:45 History ISOSORBIDE MONOnitrate [Imdur ER] 30 mg PO DAILY 05/08/20 08/14/21 08/22/21 05:45 History metFORMIN [Glucophage] 500 mg PO BID 05/08/20 08/14/21 08/21/21 History Rosuvastatin Calcium [Crestor] 20 mg PO DAILY 08/23/20 08/14/21 08/21/21 History Ferrous Sulfate [Ferrous Sulfate 324 mg PO QDAY 09/20/20 08/14/21 08/21/21 History 324 MG] Ibuprofen [Motrin 800 MG tab] 800 mg PO PRN PRN 09/20/20 08/22/21 08/08/21 History predniSONE 20 mg PO BID 09/20/20 08/14/21 08/21/21 History Albuterol Sulfate [Proventil Hfa] 2 puff IH PRN PRN 12/13/20 08/22/21 05/07/21 History traMADoL [Ultram 50 MG tab] 50 mg PO Q6HR PRN #20 tablet 12/17/20 08/14/21 08/21/21 Rx oxyCODONE /ACETAMINOPHEN [Percocet 1 tab PO Q4HR PRN #30 tab 12/20/20 08/14/21 08/21/21 Rx 5/325] Active Medications Cefazolin Sodium (Cefazolin/Sterile Water 2 Gm/20 Ml Syringe) 2 gm IV PREOP NR Stop: 08/22/21 23:59 Hydromorphone HCl (Hydromorphone 1 Mg/1 Ml Inj) 0.25 mg IV Q10MIN PRN PRN Reason: Pain, Moderate (4-6) Stop: 08/22/21 23:59 Hydromorphone HCl (Hydromorphone 1 Mg/1 Ml Inj) 0.5 mg IV Q10MIN PRN PRN Reason: Pain , Severe (7-10) Stop: 08/22/21 23:59 Lactated Ringer's (Lactated Ringers) 1,000 mls @ 100 mls/hr IV DIRECT TALAT Last Admin: 08/22/21 08:45 Dose: 100 mls/hr Midazolam HCl (Midazolam 2 Mg/2 Ml Inj) 2 mg IV PREOP NR Stop: 08/22/21 23:59 Last Admin: 08/22/21 09:23 Dose: 2 mg Ondansetron HCl (Ondansetron 4 Mg/2 Ml Inj) 4 mg IV ONCE PRN PRN Reason: Nausea And Vomiting Stop: 08/22/21 23:59 Short Stay Discharge Plan Activity: no restrictions Diet: regular Wound: per your surgeon's advice (Keep incision covered with gauze and foam dressing. Remove two pieces of packing on next dressing change in 2 days.) Follow up with: FRANK GANDARA NP-C [Primary Care Provider] - 7 Days GERTRUDIS FIGUEROA DO [Staff Physician] - 14 Days Prescriptions: oxyCODONE /ACETAMINOPHEN [Percocet 5/325 mg] 1 tab PO Q4HR PRN #20 tab PRN Reason: Pain , Severe (7-10)
[2021-08-22 11:52] VITALS: BP 118/77
== END 2021-08-22 07:44 | disposition home or self-care (01) ==
LOC: OR 07:43
PROVIDERS: ATTEND Surgery
DX: R22.41 Localized swelling, mass and lump, right lower limb (principal); I87.331 Chronic venous hypertension (idiopathic) with ulcer and inflammation of right lower extremity; F17.210 Nicotine dependence, cigarettes, uncomplicated; I20.8 Other forms of angina pectoris; I11.0 Hypertensive heart disease with heart failure; I50.9 Heart failure, unspecified; E11.9 Type 2 diabetes mellitus without complications; J45.909 Unspecified asthma, uncomplicated; G47.30 Sleep apnea, unspecified; K21.9 Gastro-esophageal reflux disease without esophagitis; M06.9 Rheumatoid arthritis, unspecified; E66.9 Obesity, unspecified; F32.9 Major depressive disorder, single episode, unspecified; F41.9 Anxiety disorder, unspecified; D64.9 Anemia, unspecified; Z83.3 Family history of diabetes mellitus; Z79.84 Long term (current) use of oral hypoglycemic drugs; Z79.899 Other long term (current) drug therapy; Z98.51 Tubal ligation status; Z98.891 History of uterine scar from previous surgery; Z82.49 Family history of ischemic heart disease and other diseases of the circulatory system; Z68.42 Body mass index [BMI] 45.0-49.9, adult
CPT/HCPCS: 11404; 36415; 80048; 81025; 82962; 85027; 88305; 88312; J0690; J2250; J2704; J3490; J7120; 88307

== ENCOUNTER 2021-10-27 10:15 | Outpatient (CLI) | payer OTHER ==
[2021-10-27] MEDS ORDERED: LIDOCAINE (4%) 40 MG/ML TOPICAL SOLN 50 ML BOTTLE TP ONE (11:50)
== END 2021-10-27 10:16 | disposition home or self-care (01) ==
LOC: WOUND 10:15
PROVIDERS: ATTEND Surgery
DX: L72.8 Other follicular cysts of the skin and subcutaneous tissue (principal); S81.801D Unspecified open wound, right lower leg, subsequent encounter; I87.2 Venous insufficiency (chronic) (peripheral); E11.9 Type 2 diabetes mellitus without complications; F17.290 Nicotine dependence, other tobacco product, uncomplicated; Z79.84 Long term (current) use of oral hypoglycemic drugs; Z79.899 Other long term (current) drug therapy; X58.XXXD Exposure to other specified factors, subsequent encounter

== ENCOUNTER 2021-12-15 10:59 | Outpatient (CLI) | payer OTHER ==
[2021-12-15] MEDS ORDERED: LIDOCAINE (4%) 40 MG/ML TOPICAL SOLN 50 ML BOTTLE TP ONE (11:12)
== END 2021-12-15 11:00 | disposition home or self-care (01) ==
LOC: WOUND 10:59
PROVIDERS: ATTEND Surgery
DX: L72.8 Other follicular cysts of the skin and subcutaneous tissue (principal); S81.801D Unspecified open wound, right lower leg, subsequent encounter; I87.2 Venous insufficiency (chronic) (peripheral); E11.9 Type 2 diabetes mellitus without complications; I89.0 Lymphedema, not elsewhere classified; F17.200 Nicotine dependence, unspecified, uncomplicated; Z79.84 Long term (current) use of oral hypoglycemic drugs; Z79.899 Other long term (current) drug therapy; X58.XXXD Exposure to other specified factors, subsequent encounter

== ENCOUNTER 2022-01-19 10:29 | Outpatient (CLI) | payer OTHER ==
[2022-01-19] MEDS ORDERED: LIDOCAINE (4%) 40 MG/ML TOPICAL SOLN 50 ML BOTTLE TP ONE (10:34)
== END 2022-01-19 10:30 | disposition home or self-care (01) ==
LOC: WOUND 10:29
PROVIDERS: ATTEND Surgery
DX: L72.8 Other follicular cysts of the skin and subcutaneous tissue (principal); S81.801D Unspecified open wound, right lower leg, subsequent encounter; I87.2 Venous insufficiency (chronic) (peripheral); E11.9 Type 2 diabetes mellitus without complications; I89.0 Lymphedema, not elsewhere classified; F17.200 Nicotine dependence, unspecified, uncomplicated; Z79.84 Long term (current) use of oral hypoglycemic drugs; Z79.899 Other long term (current) drug therapy; X58.XXXD Exposure to other specified factors, subsequent encounter

== ENCOUNTER 2022-02-16 09:28 | Outpatient (CLI) | payer OTHER ==
[2022-02-16] MEDS ORDERED: LIDOCAINE (4%) 40 MG/ML TOPICAL SOLN 50 ML BOTTLE TP ONE (10:20)
== END 2022-02-16 09:29 | disposition home or self-care (01) ==
LOC: WOUND 09:28
PROVIDERS: ATTEND Surgery
DX: L72.8 Other follicular cysts of the skin and subcutaneous tissue (principal); S81.801D Unspecified open wound, right lower leg, subsequent encounter; I87.2 Venous insufficiency (chronic) (peripheral); E11.9 Type 2 diabetes mellitus without complications; I89.0 Lymphedema, not elsewhere classified; F17.200 Nicotine dependence, unspecified, uncomplicated; Z79.84 Long term (current) use of oral hypoglycemic drugs; Z79.899 Other long term (current) drug therapy; X58.XXXD Exposure to other specified factors, subsequent encounter